=== PATIENT | female | born 1955 | race Caucasian/White ===

== ENCOUNTER 2021-03-30 18:31 | Inpatient (IN) ==
[2021-03-30] MEDS ORDERED: ETOMIDATE 20 MG/10 ML VIAL IV ONE (18:51)
[2021-03-30] MEDS ORDERED: VECURONIUM 10 MG VIAL IV ONE (18:51)
[2021-03-30] MEDS ORDERED: PIPERACILLIN/TAZOBACTAM 3,375 MG in SODIUM CHLORIDE 0.9% 100 ML IV STA (19:00)
[2021-03-30] MEDS ORDERED: ONDANSETRON 4 MG/2 ML VIAL IV STA (19:00)
[2021-03-30] MEDS ORDERED: methylPREDNISolone SOD SUC 125 MG/2 ML VIAL IV STA (19:00)
[2021-03-30] MEDS ORDERED: FUROSEMIDE 100 MG/10 ML VIAL IV STA (19:00)
[2021-03-30] MEDS ORDERED: METOPROLOL TARTRATE 5 MG/5 ML VIAL IV STA (20:00)
[2021-03-30] MEDS ORDERED: METOPROLOL TARTRATE 5 MG/5 ML VIAL IV ONE (20:07)
[2021-03-30 20:11] LABS: ABG Base Excess -7.5 MMOL/L (-2.5-2.5); ABG HCO3 17.9 MMOL/L (20-26); ABG Oxygen Saturation 99.6 % (95-100); ABG PCO2 36.6 MM HG (35-48); ABG PH 7.308 (7.35-7.45); ABG PO2 470.8 MM HG (80-95); ABG TCO2 19.1 MMOL/L (23-27)
[2021-03-30 20:45] LABS: Basophils # 0.1 10*3/uL (0.0-0.2); Basophils % 0.2 % (0.0-0.8); Hematocrit 41.7 VOL% (35.7-47.0); Hemoglobin 13.2 GM/DL (12.0-16.0); Immature Granulocytes % 4.2 %; Immature Granulocytes Absolute 1.27 #; Lymphocytes # 1.4 10*3/uL (1.4-4.0); Lymphocytes % 4.7 % (21.3-54.2); Mean Corpuscular HGB Conc 31.7 GM/DL (32-36); Mean Corpuscular Volume 91.9 FL (87-102); Mean Platelet Volume 11.5 FL (9.6-12.0); Monocytes % 2.3 % (1.7-12.7); NRBC # 0.05 10*3/uL; Neutrophils % 88.6 % (38.7-73.9); Platelet Count 400 T/CUMM (130-400); Red Blood Count 4.54 MC/CUMM (3.8-5.5); Red Cell Distribution Width 14.6 % (9.3-17.3); White Blood Count 30.4 T/CUMM (4-12)
[2021-03-30 20:54] LABS: Bacteria,Urine Moderate /HPF (Few); Bilirubin,Urine Negative (Negative); Blood, Urine Large mg/dL (Negative); Glucose,Urine (UA) 50 mg/dL (Negative); Ketones,Urine Negative (Negative); Mucus,Urine Moderate /LPF (Occasional); Nitrite,Urine Positive (Negative); Protein,Urine 100 MG/DL; RBC,Urine 2 /HPF (0-4); Squamous Epithelial Cell,Urine Occasional /HPF (0-10); Urine Appearance CLOUDY (Clear); Urine Color Yellow (Yellow); Urine Specific Gravity 1.024 (1.001-1.035)
[2021-03-30 20:59] LABS: Barbiturates Screen,Urine Negative (Negative); Benzodiazepines Screen,Urine Negative (Negative); Cannabinoid Screen,Urine Positive (Negative); Opiate Screen,Urine Positive (Negative); Phencyclidine Screen,Urine Negative (Negative)
[2021-03-30] MEDS ORDERED: AMIODARONE INJ 450 MG in DEXTROSE 5% 241 ML IV SCH (21:00)
[2021-03-30] MEDS ORDERED: cefTRIAXone 1,000 MG in SODIUM CHLORIDE 0.9% 100 ML IV STA (21:07)
[2021-03-30 21:10] LABS: INR 1.2; PT Patient Result 13.2 SECS (10.5-12.0)
[2021-03-30 21:32] LABS: Albumin 2.9 G/DL (3.4-5.0); Bilirubin,Total 0.6 MG/DL (0.20-1.00); CKMB % 1.7 %; Calcium 8.3 MG/DL (8.5-10.1); Osmolality,Calculated 293.3 MOS/KG (273-304); Potassium 4.2 MMOL/L (3.5-5.1); Total Protein 6.9 G/DL (6.4-8.2)
[2021-03-30 21:36] LABS: Lymphocytes 3 % (20-55); Platelet Estimate Increased; Segmented Neutrophils 94 % (50-85); Total Cells Counted 100
[2021-03-30] MEDS ORDERED: LACTATED RINGERS 1,000 ML IV ONE (22:30)
[2021-03-30] MEDS ORDERED: HEPARIN 1,000 UNIT/1 ML VIAL IV STA (23:35)
[2021-03-30] MEDS ORDERED: HEPARIN 5,000 UNIT/1 ML VIAL IV STA (23:36)
[2021-03-31] MEDS ORDERED: ALBUTEROL 2.5 MG/3 ML NEB RESP TX PRN
[2021-03-31] MEDS: SODIUM BICARB INJ 100 MEQ in DEXTROSE 5% 1,000 ML IV SCH ×2 (00:47→12:58)
[2021-03-31] MEDS ORDERED: VANCOMYCIN INJ 1,000 MG in SODIUM CHLORIDE 0.9% 250 ML IV SCH (02:00)
[2021-03-31] MEDS: LEVOFLOXACIN INJ 500 MG/100 ML PREMIX IV SCH (03:05)
[2021-03-31] MEDS: FAMOTIDINE 20 MG/2 ML VIAL IV SCH ×2 (03:24→13:39)
[2021-03-31 03:32] LABS: ABG Base Excess 1.8 MMOL/L (-2.5-2.5); ABG Oxygen Saturation 99.2 % (95-100); ABG TCO2 21.1 MMOL/L (23-27)
[2021-03-31 03:47] LABS: Basophils # 0.1 10*3/uL (0.0-0.2); Basophils % 0.2 % (0.0-0.8); Immature Granulocytes % 2.4 %; Immature Granulocytes Absolute 0.69 #; Lymphocytes # 1.6 10*3/uL (1.4-4.0); Lymphocytes % 5.5 % (21.3-54.2); Mean Corpuscular HGB Conc 31.7 GM/DL (32-36); Mean Corpuscular Volume 91.1 FL (87-102); Mean Platelet Volume 11.5 FL (9.6-12.0); Monocytes % 1.8 % (1.7-12.7); NRBC # 0.02 10*3/uL; Neutrophils % 90.1 % (38.7-73.9); Platelet Count 338 T/CUMM (130-400); Red Cell Distribution Width 14.7 % (9.3-17.3); White Blood Count 29.3 T/CUMM (4-12)
[2021-03-31 04:05] LABS: Lymphocytes 6 % (20-55); Platelet Estimate Adequate; Segmented Neutrophils 94 % (50-85); Total Cells Counted 100
[2021-03-31 04:43] LABS: Albumin 2.6 G/DL (3.4-5.0); Bilirubin,Total 0.4 MG/DL (0.20-1.00); Calcium 8.3 MG/DL (8.5-10.1); Osmolality,Calculated 288.7 MOS/KG (273-304); Potassium 3.6 MMOL/L (3.5-5.1); Total Protein 7.5 G/DL (6.4-8.2)
[2021-03-31 04:46] LABS: CKMB % 1.6 %
[2021-03-31 05:06] LABS: High Sensitive Troponin I* 462.3 ng/L (0-54)
[2021-03-31] MEDS ORDERED: HEPARIN 5,000 UNIT/1 ML VIAL IV ONE (08:24)
[2021-03-31] MEDS ORDERED: HEPARIN DRIP 25,000 UNITS/500 ML PREMIX IV SCH (08:30)
[2021-03-31] MEDS ORDERED: SODIUM BICARBONATE 50 MEQ/50 ML VIAL IV ONE (09:10)
[2021-03-31] MEDS ORDERED: ALBUMIN 5% 0 GM/0 ML VIAL IV ONE (09:10)
[2021-03-31] MEDS ORDERED: THROMBIN TOPICAL (RECOMBINANT) 5,000 UNIT VIAL TOP ONE (09:13)
[2021-03-31] MEDS ORDERED: VECURONIUM 10 MG VIAL IV ONE (09:14)
[2021-03-31] MEDS ORDERED: MIDAZOLAM 2 MG/2 ML VIAL ONE ×2 (09:14→11:50)
[2021-03-31] MEDS ORDERED: TISSUE ADHESIVE 1 EACH APPLICATOR TOP ONE ×2 (09:14→12:26)
[2021-03-31] MEDS ORDERED: VANCOMYCIN 500 MG VIAL ONE (09:14)
[2021-03-31] MEDS ORDERED: VANCOMYCIN INJ 1,000 MG in SODIUM CHLORIDE 0.9% 250 ML IV ONE (09:30)
[2021-03-31] MEDS ORDERED: SODIUM CHLORIDE 0.9% 1,000 ML IV PRN (09:55)
[2021-03-31] MEDS ORDERED: PHENYLEPHRINE DRIP 20 MG/250 ML PREMIX IV ONE (10:04)
[2021-03-31] MEDS ORDERED: HEPARIN/NACL 0.9% 2 UNITS/ML 1,000 UNIT/500 ML BAG IV ONE (10:37)
[2021-03-31] MEDS ORDERED: SEVOFLURANE 1 UNIT/15 MINUTE INH ONE ×3 (11:19→12:04)
[2021-03-31] MEDS ORDERED: HEPARIN 10,000 UNIT/10 ML VIAL ONE (11:19)
[2021-03-31] MEDS ORDERED: EPINEPHrine 1 MG/ML VIAL ONE (11:20)
[2021-03-31] MEDS ORDERED: SODIUM CHLORIDE 0.9% 250 ML IV ONE (11:20)
[2021-03-31] MEDS ORDERED: SODIUM CHLORIDE 0.9% 1,000 ML IV ONE ×2 (11:20)
[2021-03-31] MEDS ORDERED: PHENYLEPHRINE 1 MG/10 ML SYRINGE IV ONE ×2 (11:20→12:03)
[2021-03-31] MEDS ORDERED: ROCURONIUM 50 MG/5 ML VIAL IV ONE (11:50)
[2021-03-31 11:54] LABS: ABG Base Excess 1.9 MMOL/L (-2.5-2.5); ABG HCO3 26.2 MMOL/L (20-26); ABG Oxygen Saturation 99.2 % (95-100); ABG PCO2 46.1 MM HG (35-48); ABG PH 7.384 (7.35-7.45); ABG TCO2 24.6 MMOL/L (23-27); Glucose Heart Surgery 201 MG/DL (74-106); Hematocrit Heart Surgery 35.5 PERCENT (37-47); Hemoglobin Heart Surgery 11.5 G/DL (12.0-16.0); Potassium Heart/CVR 3.4 MMOL/L (3.5-5.1)
[2021-03-31] MEDS ORDERED: SODIUM CHLORIDE 0.9% 1,000 ML IV SCH (12:30)
[2021-03-31 12:40] LABS: Hematocrit 37.1 VOL% (35.7-47.0); Hemoglobin 12.1 GM/DL (12.0-16.0)
[2021-03-31] MEDS: NOREPINEPHRINE 8 MG in SODIUM CHLORIDE 0.9% 242 ML IV PRN (13:21)
[2021-03-31] MEDS ORDERED: LACTATED RINGERS 500 ML IV ONE (13:26)
[2021-03-31] MEDS ORDERED: LACTATED RINGERS 1,000 ML IV SCH (13:30)
[2021-03-31] MEDS: LACTATED RINGERS 1,000 ML IV SCH ×2 (14:30→21:24)
[2021-03-31 17:12] LABS: ABG Base Excess 2.2 MMOL/L (-2.5-2.5); ABG HCO3 26.4 MMOL/L (20-26); ABG Oxygen Saturation 99.6 % (95-100); ABG PCO2 34.2 MM HG (35-48); ABG PH 7.477 (7.35-7.45); ABG TCO2 22.1 MMOL/L (23-27)
[2021-03-31 18:05] LABS: ABG Base Excess 1.3 MMOL/L (-2.5-2.5); ABG HCO3 25.6 MMOL/L (20-26); ABG Oxygen Saturation 99.5 % (95-100); ABG PCO2 33.9 MM HG (35-48); ABG PH 7.467 (7.35-7.45); ABG TCO2 21.5 MMOL/L (23-27)
[2021-03-31] MEDS: INSULIN LISPRO 100 UNIT/ML SUBCUT SCH (18:27)
[2021-03-31] MEDS: ALBUTEROL/IPRATROPIUM 3 ML NEB RESP TX SCH (19:00)
[2021-03-31] MEDS: SERTRALINE 100 MG TABLET PO SCH (21:24)
[2021-04-01] MEDS: INSULIN LISPRO 100 UNIT/ML SUBCUT SCH ×4 (00:05→18:30)
[2021-04-01] MEDS ORDERED: LACTATED RINGERS 1,000 ML IV ONE (00:20)
[2021-04-01] MEDS: LEVOFLOXACIN INJ 500 MG/100 ML PREMIX IV SCH (01:00)
[2021-04-01] MEDS: NOREPINEPHRINE 8 MG in SODIUM CHLORIDE 0.9% 242 ML IV PRN ×2 (01:00→11:10)
[2021-04-01] MEDS: ALBUTEROL/IPRATROPIUM 3 ML NEB RESP TX SCH ×4 (01:00→19:45)
[2021-04-01] MEDS: FAMOTIDINE 20 MG/2 ML VIAL IV SCH (01:30)
[2021-04-01 02:32] LABS: Basophils % 0.2 % (0.0-0.8); Eosinophils % 0.2 % (0.00-10.9); Hematocrit 35.3 VOL% (35.7-47.0); Hemoglobin 11.1 GM/DL (12.0-16.0); Immature Granulocytes % 1.9 %; Immature Granulocytes Absolute 0.42 #; Lymphocytes # 2.3 10*3/uL (1.4-4.0); Lymphocytes % 10.4 % (21.3-54.2); Mean Corpuscular HGB Conc 31.4 GM/DL (32-36); Mean Corpuscular Volume 92.9 FL (87-102); Mean Platelet Volume 11.8 FL (9.6-12.0); Monocytes % 4.2 % (1.7-12.7); NRBC # 0.12 10*3/uL; Neutrophils % 83.1 % (38.7-73.9); Platelet Count 315 T/CUMM (130-400); Red Cell Distribution Width 14.9 % (9.3-17.3); White Blood Count 22.3 T/CUMM (4-12)
[2021-04-01 02:45] LABS: Calcium 6.7 MG/DL (8.5-10.1); Osmolality,Calculated 289.4 MOS/KG (273-304); Potassium 3.8 MMOL/L (3.5-5.1)
[2021-04-01 03:00] LABS: Band Neutrophils 9 % (0-10); Hypochromasia 1+; Lymphocytes 13 % (20-55); Platelet Estimate Normal; Segmented Neutrophils 76 % (50-85); Total Cells Counted 100
[2021-04-01 03:01] LABS: Polychromasia Few; Reactive Lymphocytes 1+
[2021-04-01 03:15] LABS: ABG Base Excess -0.7 MMOL/L (-2.5-2.5); ABG HCO3 23.9 MMOL/L (20-26); ABG Oxygen Saturation 98.8 % (95-100); ABG PCO2 34.3 MM HG (35-48); ABG PH 7.434 (7.35-7.45); ABG TCO2 20.4 MMOL/L (23-27)
[2021-04-01] MEDS ORDERED: LACTATED RINGERS 1,000 ML IV SCH (03:30)
[2021-04-01] MEDS: LEVOTHYROXINE 100 MCG TABLET PO SCH (06:32)
[2021-04-01] MEDS: LACTATED RINGERS 1,000 ML IV SCH ×4 (07:17→23:30)
[2021-04-01] MEDS: levETIRAcetam LIQUID 100 MG/ML 30 ML/BOTTLE PO SCH ×2 (08:33→20:00)
[2021-04-01] MEDS: SERTRALINE 100 MG TABLET PO SCH ×2 (08:33→20:01)
[2021-04-01] MEDS ORDERED: ATORVASTATIN 20 MG TABLET PO SCH (09:00)
[2021-04-01] MEDS ORDERED: LEVOFLOXACIN INJ 250 MG/50 ML PREMIX IV SCH (11:30)
[2021-04-02] MEDS: INSULIN LISPRO 100 UNIT/ML SUBCUT SCH ×4 (00:38→18:01)
[2021-04-02] MEDS: FAMOTIDINE 20 MG/2 ML VIAL IV SCH (02:10)
[2021-04-02] MEDS: ALBUTEROL/IPRATROPIUM 3 ML NEB RESP TX SCH ×4 (02:30→18:31)
[2021-04-02 02:59] LABS: ABG HCO3 22.8 MMOL/L (20-26); ABG Oxygen Saturation 99.6 % (95-100); ABG PCO2 31.6 MM HG (35-48); ABG PH 7.441 (7.35-7.45); ABG TCO2 19.7 MMOL/L (23-27)
[2021-04-02 03:54] LABS: Basophils % 0.1 % (0.0-0.8); Lymphocytes # 1.6 10*3/uL (1.4-4.0); Lymphocytes % 5.7 % (21.3-54.2)
[2021-04-02 04:03] LABS: Hematocrit 26.8 VOL% (35.7-47.0); Immature Granulocytes % 1.4 %; Immature Granulocytes Absolute 0.39 #; Mean Corpuscular HGB Conc 32.1 GM/DL (32-36); Mean Corpuscular Volume 92.4 FL (87-102); Mean Platelet Volume 12.5 FL (9.6-12.0); Monocytes % 2.5 % (1.7-12.7); NRBC # 0.07 10*3/uL; Neutrophils % 90.3 % (38.7-73.9); Platelet Count 276 T/CUMM (130-400); Red Cell Distribution Width 15.2 % (9.3-17.3); White Blood Count 27.9 T/CUMM (4-12)
[2021-04-02 04:07] LABS: Hemoglobin 8.6 GM/DL (12.0-16.0)
[2021-04-02 04:19] LABS: Calcium 6.8 MG/DL (8.5-10.1); Osmolality,Calculated 297.1 MOS/KG (273-304); Potassium 4.4 MMOL/L (3.5-5.1)
[2021-04-02 04:36] LABS: Band Neutrophils 6 % (0-10); Hypochromasia Slight; Lymphocytes 5 % (20-55); Platelet Estimate Normal; Segmented Neutrophils 85 % (50-85); Total Cells Counted 100
[2021-04-02] MEDS: LACTATED RINGERS 1,000 ML IV SCH ×3 (06:45→19:25)
[2021-04-02] MEDS ORDERED: MAGNESIUM SULF RIDER 4 GM/100 ML PREMIX IV PRN (07:36)
[2021-04-02] MEDS: SERTRALINE 100 MG TABLET PO SCH ×2 (09:40→20:58)
[2021-04-02] MEDS: levETIRAcetam LIQUID 100 MG/ML 30 ML/BOTTLE PO SCH ×2 (09:40→20:58)
[2021-04-02] MEDS: LEVOTHYROXINE 100 MCG TABLET PO SCH (09:40)
[2021-04-02] MEDS: MAGNESIUM SULF RIDER 2 GM/50 ML PREMIX IV PRN (09:40)
[2021-04-02] MEDS: HEPARIN 5,000 UNIT/1 ML VIAL SUBCUT SCH ×2 (15:04→22:09)
[2021-04-02] MEDS ORDERED: ZINC OXIDE PASTE 113 GM TUBE TOP PRN (16:12)
[2021-04-02] MEDS: DESITIN 4OZ/NYSTATIN 15 GRAM MIXTURE PASTE TOP SCH (20:58)
[2021-04-03] MEDS: INSULIN LISPRO 100 UNIT/ML SUBCUT SCH ×4 (00:25→18:36)
[2021-04-03] MEDS: FAMOTIDINE 20 MG/2 ML VIAL IV SCH (01:15)
[2021-04-03] MEDS: ALBUTEROL/IPRATROPIUM 3 ML NEB RESP TX SCH ×4 (01:27→19:43)
[2021-04-03] MEDS: LACTATED RINGERS 1,000 ML IV SCH ×4 (02:06→20:59)
[2021-04-03 04:15] LABS: Calcium 7.2 MG/DL (8.5-10.1)
[2021-04-03 04:17] LABS: Basophils % 0.1 % (0.0-0.8); Hematocrit 21.6 VOL% (35.7-47.0); Immature Granulocytes Absolute 0.19 #; Lymphocytes # 1.3 10*3/uL (1.4-4.0); Lymphocytes % 6.8 % (21.3-54.2); Mean Corpuscular HGB Conc 31.5 GM/DL (32-36); Mean Corpuscular Volume 93.1 FL (87-102); Mean Platelet Volume 11.9 FL (9.6-12.0); Monocytes % 1.3 % (1.7-12.7); NRBC # 0.06 10*3/uL; Neutrophils % 90.8 % (38.7-73.9); Red Blood Count 2.32 MC/CUMM (3.8-5.5); Red Cell Distribution Width 15.4 % (9.3-17.3)
[2021-04-03 04:21] LABS: Hemoglobin 6.8 GM/DL (12.0-16.0); Platelet Count 217 T/CUMM (130-400); White Blood Count 18.7 T/CUMM (4-12)
[2021-04-03 04:28] LABS: Band Neutrophils 9 % (0-10); Eosinophils 1 % (0-10); Lymphocytes 6 % (20-55); Segmented Neutrophils 81 % (50-85); Total Cells Counted 100
[2021-04-03 04:29] LABS: Hypochromasia 1+; Microcytosis 1+; Platelet Estimate Normal
[2021-04-03 04:56] LABS: Albumin 1.1 G/DL (3.4-5.0); Bilirubin,Direct 0.23 MG/DL (0.0-0.20); Bilirubin,Indirect 0.3 MG/DL (0.0-1.0); Bilirubin,Total 0.5 MG/DL (0.20-1.00); Total Protein 3.8 G/DL (6.4-8.2)
[2021-04-03 05:29] LABS: Albumin 1.2 G/DL (3.4-5.0); Bilirubin,Total 0.5 MG/DL (0.20-1.00); Calcium 7.5 MG/DL (8.5-10.1); Osmolality,Calculated 298.1 MOS/KG (273-304); Potassium 3.9 MMOL/L (3.5-5.1); Total Protein 4.6 G/DL (6.4-8.2)
[2021-04-03 05:33] LABS: INR 1.2; Partial Thromboplastin Time 36.2 SECS (23.9-33.8)
[2021-04-03] MEDS: LEVOTHYROXINE 100 MCG TABLET PO SCH (06:14)
[2021-04-03] MEDS: HEPARIN 5,000 UNIT/1 ML VIAL SUBCUT SCH ×3 (06:14→22:43)
[2021-04-03 08:04] LABS: CKMB % 0.4 %
[2021-04-03] MEDS: DESITIN 4OZ/NYSTATIN 15 GRAM MIXTURE PASTE TOP SCH ×2 (09:39→20:20)
[2021-04-03] MEDS: SERTRALINE 100 MG TABLET PO SCH ×2 (09:39→20:20)
[2021-04-03] MEDS: levETIRAcetam LIQUID 100 MG/ML 30 ML/BOTTLE PO SCH ×2 (09:40→20:20)
[2021-04-03] MEDS: cefTRIAXone 1,000 MG in SODIUM CHLORIDE 0.9% 100 ML IV SCH (09:41)
[2021-04-03] MEDS ORDERED: FUROSEMIDE 20 MG/2 ML VIAL IV ONE (12:18)
[2021-04-03] MEDS: NOREPINEPHRINE 8 MG in SODIUM CHLORIDE 0.9% 242 ML IV PRN (17:16)
[2021-04-03 17:20] LABS: Hematocrit 29.8 VOL% (35.7-47.0)
[2021-04-03 17:21] LABS: Hemoglobin 9.5 GM/DL (12.0-16.0)
[2021-04-04] MEDS: INSULIN LISPRO 100 UNIT/ML SUBCUT SCH ×4 (00:21→18:12)
[2021-04-04] MEDS: ALBUTEROL/IPRATROPIUM 3 ML NEB RESP TX SCH ×4 (01:25→19:42)
[2021-04-04] MEDS: FAMOTIDINE 20 MG/2 ML VIAL IV SCH (01:35)
[2021-04-04 04:42] LABS: Basophils % 0.2 % (0.0-0.8); Hematocrit 29.2 VOL% (35.7-47.0); Hemoglobin 9.2 GM/DL (12.0-16.0); Immature Granulocytes % 0.6 %; Lymphocytes # 1.1 10*3/uL (1.4-4.0); Lymphocytes % 6.3 % (21.3-54.2); Mean Corpuscular HGB Conc 31.5 GM/DL (32-36); Mean Platelet Volume 11.9 FL (9.6-12.0); Monocytes % 2.8 % (1.7-12.7); NRBC # 0.08 10*3/uL; Neutrophils % 90.1 % (38.7-73.9); Platelet Count 233 T/CUMM (130-400); Red Blood Count 3.21 MC/CUMM (3.8-5.5); Red Cell Distribution Width 16.1 % (9.3-17.3); White Blood Count 17.6 T/CUMM (4-12)
[2021-04-04 05:02] LABS: Band Neutrophils 4 % (0-10); Eosinophils 3 % (0-10); Hypochromasia 1+; Lymphocytes 6 % (20-55); Nucleated Red Blood Cells 2 (0-5); Segmented Neutrophils 85 % (50-85); Total Cells Counted 100
[2021-04-04 05:03] LABS: Microcytosis 1+; Ovalocytes Slight; Platelet Estimate Normal
[2021-04-04 05:06] LABS: Albumin 1.2 G/DL (3.4-5.0); Bilirubin,Total 1.5 MG/DL (0.20-1.00); Calcium 7.5 MG/DL (8.5-10.1); Osmolality,Calculated 299.8 MOS/KG (273-304); Potassium 3.8 MMOL/L (3.5-5.1)
[2021-04-04] MEDS: LEVOTHYROXINE 100 MCG TABLET PO SCH (06:16)
[2021-04-04] MEDS: HEPARIN 5,000 UNIT/1 ML VIAL SUBCUT SCH ×3 (06:16→21:19)
[2021-04-04] MEDS: LACTATED RINGERS 1,000 ML IV SCH ×3 (08:30→11:51)
[2021-04-04] MEDS: levETIRAcetam LIQUID 100 MG/ML 30 ML/BOTTLE PO SCH ×2 (09:07→22:56)
[2021-04-04] MEDS: SERTRALINE 100 MG TABLET PO SCH ×2 (09:08→21:19)
[2021-04-04] MEDS: cefTRIAXone 1,000 MG in SODIUM CHLORIDE 0.9% 100 ML IV SCH (09:08)
[2021-04-04] MEDS: DESITIN 4OZ/NYSTATIN 15 GRAM MIXTURE PASTE TOP SCH ×2 (09:09→22:57)
[2021-04-04] MEDS: CLOPIDOGREL 75 MG TABLET PO SCH (09:54)
[2021-04-04] MEDS: ASPIRIN EC 81 MG TABLET PO SCH (09:54)
[2021-04-04] MEDS ORDERED: FUROSEMIDE 40 MG/4 ML VIAL IV ONE (12:21)
[2021-04-05] MEDS: FAMOTIDINE 20 MG/2 ML VIAL IV SCH (00:30)
[2021-04-05] MEDS: LACTATED RINGERS 1,000 ML IV SCH ×2 (00:30→11:47)
[2021-04-05] MEDS: INSULIN LISPRO 100 UNIT/ML SUBCUT SCH ×4 (00:30→20:10)
[2021-04-05] MEDS: DESITIN 4OZ/NYSTATIN 15 GRAM MIXTURE PASTE TOP SCH ×3 (00:45→22:05)
[2021-04-05] MEDS: ALBUTEROL/IPRATROPIUM 3 ML NEB RESP TX SCH ×4 (01:45→19:20)
[2021-04-05 04:34] LABS: Basophils % 0.3 % (0.0-0.8); Eosinophils # 0.1 10*3/uL (0.0-0.87); Eosinophils % 0.4 % (0.00-10.9); Hematocrit 31.9 VOL% (35.7-47.0); Hemoglobin 10.1 GM/DL (12.0-16.0); Immature Granulocytes Absolute 0.15 #; Lymphocytes # 1.2 10*3/uL (1.4-4.0); Lymphocytes % 7.4 % (21.3-54.2); Mean Corpuscular HGB Conc 31.7 GM/DL (32-36); Mean Corpuscular Volume 91.7 FL (87-102); Mean Platelet Volume 11.8 FL (9.6-12.0); Monocytes % 4.4 % (1.7-12.7); NRBC # 0.05 10*3/uL; Neutrophils % 86.5 % (38.7-73.9); Platelet Count 245 T/CUMM (130-400); Red Blood Count 3.48 MC/CUMM (3.8-5.5); Red Cell Distribution Width 16.1 % (9.3-17.3); White Blood Count 15.8 T/CUMM (4-12)
[2021-04-05 04:55] LABS: Hypochromasia 1+; Lymphocytes 5 % (20-55); Microcytosis 1+; Platelet Estimate Adequate; Segmented Neutrophils 89 % (50-85); Total Cells Counted 100
[2021-04-05 04:59] LABS: Albumin 1.4 G/DL (3.4-5.0); Bilirubin,Total 0.7 MG/DL (0.20-1.00); Calcium 7.5 MG/DL (8.5-10.1); Osmolality,Calculated 291.4 MOS/KG (273-304); Potassium 3.6 MMOL/L (3.5-5.1); Total Protein 5.5 G/DL (6.4-8.2)
[2021-04-05] MEDS: LEVOTHYROXINE 100 MCG TABLET PO SCH (05:55)
[2021-04-05] MEDS: HEPARIN 5,000 UNIT/1 ML VIAL SUBCUT SCH ×3 (05:56→22:06)
[2021-04-05] MEDS: cefTRIAXone 1,000 MG in SODIUM CHLORIDE 0.9% 100 ML IV SCH (11:10)
[2021-04-05] MEDS: SERTRALINE 100 MG TABLET PO SCH ×2 (11:12→22:05)
[2021-04-05] MEDS: ASPIRIN EC 81 MG TABLET PO SCH (11:12)
[2021-04-05] MEDS: CLOPIDOGREL 75 MG TABLET PO SCH (11:12)
[2021-04-05] MEDS: CLOTRIMAZOLE 10 MG TROCHE PO SCH ×4 (11:20→22:06)
[2021-04-05] MEDS: levETIRAcetam LIQUID 100 MG/ML 30 ML/BOTTLE PO SCH ×2 (11:47→23:05)
[2021-04-05] MEDS: ONDANSETRON 4 MG/2 ML VIAL IV PRN (12:32)
[2021-04-06] MEDS: FAMOTIDINE 20 MG/2 ML VIAL IV SCH (00:27)
[2021-04-06] MEDS: ALBUTEROL/IPRATROPIUM 3 ML NEB RESP TX SCH ×4 (01:13→20:20)
[2021-04-06] MEDS: INSULIN LISPRO 100 UNIT/ML SUBCUT SCH ×4 (01:52→19:11)
[2021-04-06 05:00] LABS: Basophils % 0.2 % (0.0-0.8); Hematocrit 33.8 VOL% (35.7-47.0); Hemoglobin 10.3 GM/DL (12.0-16.0); Immature Granulocytes % 1.7 %; Immature Granulocytes Absolute 0.22 #; Lymphocytes # 1.2 10*3/uL (1.4-4.0); Lymphocytes % 9.3 % (21.3-54.2); Mean Corpuscular HGB Conc 30.5 GM/DL (32-36); Mean Corpuscular Volume 94.4 FL (87-102); Mean Platelet Volume 11.4 FL (9.6-12.0); Monocytes % 7.3 % (1.7-12.7); NRBC # 0.02 10*3/uL; Neutrophils % 81.5 % (38.7-73.9); Platelet Count 276 T/CUMM (130-400); Red Blood Count 3.58 MC/CUMM (3.8-5.5); Red Cell Distribution Width 15.9 % (9.3-17.3); White Blood Count 12.6 T/CUMM (4-12)
[2021-04-06 05:25] LABS: Band Neutrophils 1 % (0-10); Eosinophils 1 % (0-10); Hypochromasia 1+; Lymphocytes 9 % (20-55); Microcytosis 1+; Platelet Estimate Adequate; Segmented Neutrophils 84 % (50-85); Total Cells Counted 100
[2021-04-06 05:42] LABS: Calcium 7.6 MG/DL (8.5-10.1); Osmolality,Calculated 298.7 MOS/KG (273-304); Potassium 3.9 MMOL/L (3.5-5.1)
[2021-04-06 05:45] LABS: Albumin 1.5 G/DL (3.4-5.0); Bilirubin,Total 1.3 MG/DL (0.20-1.00); Calcium 8.1 MG/DL (8.5-10.1); Osmolality,Calculated 294.1 MOS/KG (273-304); Potassium 3.9 MMOL/L (3.5-5.1); Total Protein 5.9 G/DL (6.4-8.2)
[2021-04-06] MEDS: LORazepam 2 MG/1 ML VIAL IV PRN (06:32)
[2021-04-06] MEDS: HEPARIN 5,000 UNIT/1 ML VIAL SUBCUT SCH ×3 (06:41→21:08)
[2021-04-06] MEDS: CLOTRIMAZOLE 10 MG TROCHE PO SCH ×5 (06:41→21:08)
[2021-04-06] MEDS: LEVOTHYROXINE 100 MCG TABLET PO SCH (06:41)
[2021-04-06] MEDS: SERTRALINE 100 MG TABLET PO SCH ×2 (09:59→20:45)
[2021-04-06] MEDS: ASPIRIN EC 81 MG TABLET PO SCH (09:59)
[2021-04-06] MEDS: CLOPIDOGREL 75 MG TABLET PO SCH (09:59)
[2021-04-06] MEDS: DESITIN 4OZ/NYSTATIN 15 GRAM MIXTURE PASTE TOP SCH ×2 (10:01→20:45)
[2021-04-06] MEDS: MAGNESIUM SULF RIDER 2 GM/50 ML PREMIX IV PRN (10:02)
[2021-04-06 11:03] LABS: ABG Base Excess 2.4 MMOL/L (-2.5-2.5); ABG HCO3 26.1 MMOL/L (20-26); ABG Oxygen Saturation 73.2 % (95-100); ABG PH 7.466 (7.35-7.45); ABG TCO2 23.6 MMOL/L (23-27)
[2021-04-06 11:04] LABS: ABG PO2 40.5 MM HG (80-95)
[2021-04-06 13:53] LABS: ABG Base Excess 0.7 MMOL/L (-2.5-2.5); ABG PH 7.402 (7.35-7.45); ABG TCO2 22.8 MMOL/L (23-27)
[2021-04-06] MEDS: levETIRAcetam LIQUID 100 MG/ML 30 ML/BOTTLE PO SCH ×3 (15:22→20:50)
[2021-04-07] MEDS: INSULIN LISPRO 100 UNIT/ML SUBCUT SCH ×4 (01:17→18:55)
[2021-04-07] MEDS: FAMOTIDINE 20 MG/2 ML VIAL IV SCH (02:01)
[2021-04-07] MEDS: LACTATED RINGERS 1,000 ML IV SCH ×3 (02:16→19:25)
[2021-04-07] MEDS: LORazepam 2 MG/1 ML VIAL IV PRN (03:10)
[2021-04-07] MEDS: ALBUTEROL/IPRATROPIUM 3 ML NEB RESP TX SCH ×4 (04:10→19:21)
[2021-04-07] MEDS: CLOTRIMAZOLE 10 MG TROCHE PO SCH ×5 (06:24→21:56)
[2021-04-07] MEDS: LEVOTHYROXINE 100 MCG TABLET PO SCH (06:24)
[2021-04-07] MEDS: HEPARIN 5,000 UNIT/1 ML VIAL SUBCUT SCH ×3 (06:24→21:55)
[2021-04-07 08:15] LABS: Basophils % 0.4 % (0.0-0.8); Eosinophils # 0.1 10*3/uL (0.0-0.87); Eosinophils % 0.5 % (0.00-10.9); Hematocrit 34.8 VOL% (35.7-47.0); Immature Granulocytes % 2.4 %; Immature Granulocytes Absolute 0.25 #; Lymphocytes # 1.3 10*3/uL (1.4-4.0); Lymphocytes % 11.8 % (21.3-54.2); Mean Corpuscular HGB Conc 31.6 GM/DL (32-36); Mean Corpuscular Volume 92.8 FL (87-102); Mean Platelet Volume 11.2 FL (9.6-12.0); Monocytes % 8.8 % (1.7-12.7); Neutrophils % 76.1 % (38.7-73.9); Platelet Count 330 T/CUMM (130-400); Red Blood Count 3.75 MC/CUMM (3.8-5.5); Red Cell Distribution Width 15.8 % (9.3-17.3); White Blood Count 10.6 T/CUMM (4-12)
[2021-04-07 08:37] LABS: Band Neutrophils 1 % (0-10); Eosinophils 2 % (0-10); Hypochromasia 1+; Lymphocytes 16 % (20-55); Microcytosis 1+; Platelet Estimate Adequate; Segmented Neutrophils 77 % (50-85); Total Cells Counted 100
[2021-04-07 08:46] LABS: Calcium 8.1 MG/DL (8.5-10.1); Osmolality,Calculated 294.1 MOS/KG (273-304); Potassium 3.7 MMOL/L (3.5-5.1)
[2021-04-07] MEDS: ASPIRIN EC 81 MG TABLET PO SCH (09:48)
[2021-04-07] MEDS: CLOPIDOGREL 75 MG TABLET PO SCH (09:48)
[2021-04-07] MEDS: SERTRALINE 100 MG TABLET PO SCH ×2 (09:49→21:56)
[2021-04-07] MEDS: DESITIN 4OZ/NYSTATIN 15 GRAM MIXTURE PASTE TOP SCH ×2 (09:55→21:54)
[2021-04-07] MEDS: levETIRAcetam LIQUID 100 MG/ML 30 ML/BOTTLE PO SCH ×2 (09:55→21:55)
[2021-04-08] MEDS: FAMOTIDINE 20 MG/2 ML VIAL IV SCH (00:18)
[2021-04-08] MEDS: INSULIN LISPRO 100 UNIT/ML SUBCUT SCH ×4 (00:20→18:00)
[2021-04-08] MEDS: ALBUTEROL/IPRATROPIUM 3 ML NEB RESP TX SCH ×4 (01:15→20:57)
[2021-04-08] MEDS: CLOTRIMAZOLE 10 MG TROCHE PO SCH ×5 (05:21→21:02)
[2021-04-08] MEDS: HEPARIN 5,000 UNIT/1 ML VIAL SUBCUT SCH ×3 (05:21→21:02)
[2021-04-08 05:41] LABS: Basophils % 0.4 % (0.0-0.8); Eosinophils % 0.4 % (0.00-10.9); Hematocrit 32.2 VOL% (35.7-47.0); Hemoglobin 9.9 GM/DL (12.0-16.0); Immature Granulocytes % 1.9 %; Immature Granulocytes Absolute 0.19 #; Lymphocytes # 1.5 10*3/uL (1.4-4.0); Lymphocytes % 14.8 % (21.3-54.2); Mean Corpuscular HGB Conc 30.7 GM/DL (32-36); Mean Platelet Volume 11.2 FL (9.6-12.0); Monocytes % 7.1 % (1.7-12.7); Neutrophils % 75.4 % (38.7-73.9); Platelet Count 326 T/CUMM (130-400); Red Cell Distribution Width 15.6 % (9.3-17.3); White Blood Count 10.2 T/CUMM (4-12)
[2021-04-08] MEDS: LEVOTHYROXINE 100 MCG TABLET PO SCH (05:56)
[2021-04-08 06:19] LABS: Band Neutrophils 3 % (0-10); Eosinophils 2 % (0-10); Lymphocytes 8 % (20-55); Platelet Estimate Normal; Segmented Neutrophils 80 % (50-85); Total Cells Counted 100
[2021-04-08 06:32] LABS: Calcium 7.8 MG/DL (8.5-10.1); Osmolality,Calculated 296.8 MOS/KG (273-304)
[2021-04-08] MEDS ORDERED: MORPHINE 2 MG/1 ML SYRINGE IV SCH (09:00)
[2021-04-08] MEDS: DESITIN 4OZ/NYSTATIN 15 GRAM MIXTURE PASTE TOP SCH ×2 (09:14→20:10)
[2021-04-08] MEDS: SERTRALINE 100 MG TABLET PO SCH ×2 (09:14→20:09)
[2021-04-08] MEDS: ASPIRIN EC 81 MG TABLET PO SCH (09:14)
[2021-04-08] MEDS: CLOPIDOGREL 75 MG TABLET PO SCH (09:14)
[2021-04-08] MEDS: POTASSIUM CHLORIDE 20 MEQ TABLET PO PRN (09:33)
[2021-04-08] MEDS: levETIRAcetam LIQUID 100 MG/ML 30 ML/BOTTLE PO SCH ×2 (09:33→20:08)
[2021-04-08] MEDS ORDERED: POTASSIUM CHLORIDE RIDER 10 MEQ/100 ML PREMIX IV PRN (13:43)
[2021-04-08] MEDS: POTASSIUM CHLORIDE RIDER 20 MEQ/100 ML PREMIX IV PRN ×2 (14:02→17:10)
[2021-04-08] MEDS: COLESEVELAM 625 MG TABLET PO SCH (17:10)
[2021-04-08] MEDS: LACTATED RINGERS 1,000 ML IV SCH (17:15)
[2021-04-09] MEDS: ALBUTEROL/IPRATROPIUM 3 ML NEB RESP TX SCH ×4 (00:49→19:37)
[2021-04-09] MEDS: INSULIN LISPRO 100 UNIT/ML SUBCUT SCH ×4 (01:37→18:36)
[2021-04-09] MEDS: FAMOTIDINE 20 MG/2 ML VIAL IV SCH (01:38)
[2021-04-09] MEDS: MORPHINE 2 MG/1 ML SYRINGE IV PRN ×2 (01:51→08:12)
[2021-04-09 05:30] LABS: Basophils % 0.2 % (0.0-0.8); Hematocrit 30.6 VOL% (35.7-47.0); Hemoglobin 9.6 GM/DL (12.0-16.0); Immature Granulocytes % 1.7 %; Lymphocytes # 1.7 10*3/uL (1.4-4.0); Lymphocytes % 14.2 % (21.3-54.2); Mean Corpuscular HGB Conc 31.4 GM/DL (32-36); Mean Corpuscular Volume 91.6 FL (87-102); Mean Platelet Volume 10.8 FL (9.6-12.0); Monocytes % 5.7 % (1.7-12.7); Neutrophils % 78.2 % (38.7-73.9); Platelet Count 314 T/CUMM (130-400); Red Blood Count 3.34 MC/CUMM (3.8-5.5); Red Cell Distribution Width 15.6 % (9.3-17.3)
[2021-04-09 05:55] LABS: Band Neutrophils 22 % (0-10); Eosinophils 1 % (0-10); Lymphocytes 14 % (20-55); Platelet Estimate Normal; Segmented Neutrophils 56 % (50-85); Total Cells Counted 100
[2021-04-09 05:56] LABS: Anisocytosis 1+
[2021-04-09 05:58] LABS: Calcium 7.4 MG/DL (8.5-10.1); Osmolality,Calculated 294.7 MOS/KG (273-304); Potassium 3.5 MMOL/L (3.5-5.1)
[2021-04-09] MEDS: CLOTRIMAZOLE 10 MG TROCHE PO SCH ×5 (05:59→21:40)
[2021-04-09] MEDS: HEPARIN 5,000 UNIT/1 ML VIAL SUBCUT SCH ×3 (05:59→21:40)
[2021-04-09] MEDS: LEVOTHYROXINE 100 MCG TABLET PO SCH (05:59)
[2021-04-09] MEDS: LACTATED RINGERS 1,000 ML IV SCH (07:31)
[2021-04-09] MEDS: DESITIN 4OZ/NYSTATIN 15 GRAM MIXTURE PASTE TOP SCH ×2 (10:55→21:39)
[2021-04-09] MEDS: COLESEVELAM 625 MG TABLET PO SCH ×2 (11:01→17:19)
[2021-04-09] MEDS: CLOPIDOGREL 75 MG TABLET PO SCH (11:02)
[2021-04-09] MEDS: ASPIRIN EC 81 MG TABLET PO SCH (11:02)
[2021-04-09] MEDS: SERTRALINE 100 MG TABLET PO SCH ×2 (11:02→21:40)
[2021-04-09] MEDS: levETIRAcetam LIQUID 100 MG/ML 30 ML/BOTTLE PO SCH ×2 (11:05→21:38)
[2021-04-10] MEDS: MORPHINE 2 MG/1 ML SYRINGE IV PRN (00:22)
[2021-04-10] MEDS: FAMOTIDINE 20 MG/2 ML VIAL IV SCH (00:29)
[2021-04-10] MEDS: INSULIN LISPRO 100 UNIT/ML SUBCUT SCH ×4 (00:34→18:37)
[2021-04-10] MEDS: ALBUTEROL/IPRATROPIUM 3 ML NEB RESP TX SCH ×4 (00:46→19:04)
[2021-04-10 05:10] LABS: Basophils % 0.2 % (0.0-0.8); Hematocrit 30.7 VOL% (35.7-47.0); Hemoglobin 9.6 GM/DL (12.0-16.0); Immature Granulocytes Absolute 0.13 #; Lymphocytes # 1.6 10*3/uL (1.4-4.0); Lymphocytes % 12.3 % (21.3-54.2); Mean Corpuscular HGB Conc 31.3 GM/DL (32-36); Mean Corpuscular Volume 92.2 FL (87-102); Mean Platelet Volume 10.7 FL (9.6-12.0); Monocytes % 4.3 % (1.7-12.7); Neutrophils % 82.2 % (38.7-73.9); Platelet Count 314 T/CUMM (130-400); Red Blood Count 3.33 MC/CUMM (3.8-5.5); Red Cell Distribution Width 15.6 % (9.3-17.3); White Blood Count 12.8 T/CUMM (4-12)
[2021-04-10 05:31] LABS: Eosinophils 1 % (0-10); Lymphocytes 13 % (20-55); Segmented Neutrophils 79 % (50-85); Total Cells Counted 100
[2021-04-10 05:32] LABS: Hypochromasia 1+; Microcytosis 1+; Platelet Estimate Adequate
[2021-04-10] MEDS: HEPARIN 5,000 UNIT/1 ML VIAL SUBCUT SCH ×4 (05:44→21:21)
[2021-04-10 05:47] LABS: Calcium 7.3 MG/DL (8.5-10.1); Osmolality,Calculated 287.1 MOS/KG (273-304); Potassium 3.6 MMOL/L (3.5-5.1)
[2021-04-10] MEDS: LEVOTHYROXINE 100 MCG TABLET PO SCH (06:07)
[2021-04-10] MEDS: CLOTRIMAZOLE 10 MG TROCHE PO SCH ×5 (06:07→21:19)
[2021-04-10] MEDS: LACTATED RINGERS 1,000 ML IV SCH ×2 (09:41→11:12)
[2021-04-10] MEDS: COLESEVELAM 625 MG TABLET PO SCH ×2 (09:42→18:37)
[2021-04-10] MEDS: ASPIRIN EC 81 MG TABLET PO SCH (09:43)
[2021-04-10] MEDS: CLOPIDOGREL 75 MG TABLET PO SCH (09:43)
[2021-04-10] MEDS: DESITIN 4OZ/NYSTATIN 15 GRAM MIXTURE PASTE TOP SCH ×2 (09:43→21:18)
[2021-04-10] MEDS: SERTRALINE 100 MG TABLET PO SCH ×2 (09:43→21:19)
[2021-04-10] MEDS: LORazepam 2 MG/1 ML VIAL IV PRN (10:10)
[2021-04-10] MEDS: cefTRIAXone 1,000 MG in SODIUM CHLORIDE 0.9% 100 ML IV SCH (10:11)
[2021-04-10] MEDS: levETIRAcetam LIQUID 100 MG/ML 30 ML/BOTTLE PO SCH ×2 (10:12→21:17)
[2021-04-11] MEDS: ALBUTEROL/IPRATROPIUM 3 ML NEB RESP TX SCH ×3 (00:27→12:27)
[2021-04-11] MEDS: FAMOTIDINE 20 MG/2 ML VIAL IV SCH (01:03)
[2021-04-11] MEDS: INSULIN LISPRO 100 UNIT/ML SUBCUT SCH ×4 (01:04→18:09)
[2021-04-11] MEDS: LORazepam 2 MG/1 ML VIAL IV PRN ×2 (01:04→19:31)
[2021-04-11] MEDS: MORPHINE 2 MG/1 ML SYRINGE IV PRN (02:56)
[2021-04-11 05:31] LABS: Basophils # 0.1 10*3/uL (0.0-0.2); Basophils % 0.4 % (0.0-0.8); Eosinophils % 0.2 % (0.00-10.9); Hematocrit 29.3 VOL% (35.7-47.0); Hemoglobin 9.2 GM/DL (12.0-16.0); Immature Granulocytes % 1.1 %; Immature Granulocytes Absolute 0.13 #; Lymphocytes # 1.5 10*3/uL (1.4-4.0); Lymphocytes % 12.3 % (21.3-54.2); Mean Corpuscular HGB Conc 31.4 GM/DL (32-36); Mean Corpuscular Volume 92.7 FL (87-102); Monocytes % 4.1 % (1.7-12.7); Neutrophils % 81.9 % (38.7-73.9); Platelet Count 326 T/CUMM (130-400); Red Blood Count 3.16 MC/CUMM (3.8-5.5); Red Cell Distribution Width 15.6 % (9.3-17.3); White Blood Count 12.2 T/CUMM (4-12)
[2021-04-11 05:58] LABS: Calcium 7.5 MG/DL (8.5-10.1); Potassium 3.4 MMOL/L (3.5-5.1)
[2021-04-11] MEDS: HEPARIN 5,000 UNIT/1 ML VIAL SUBCUT SCH ×3 (06:10→22:24)
[2021-04-11] MEDS: LEVOTHYROXINE 100 MCG TABLET PO SCH (06:10)
[2021-04-11] MEDS: CLOTRIMAZOLE 10 MG TROCHE PO SCH ×5 (06:10→22:24)
[2021-04-11] MEDS: COLESEVELAM 625 MG TABLET PO SCH ×2 (09:59→17:02)
[2021-04-11] MEDS: SERTRALINE 100 MG TABLET PO SCH ×2 (10:00→22:24)
[2021-04-11] MEDS: CLOPIDOGREL 75 MG TABLET PO SCH (10:00)
[2021-04-11] MEDS: ASPIRIN EC 81 MG TABLET PO SCH (10:00)
[2021-04-11] MEDS: cefTRIAXone 1,000 MG in SODIUM CHLORIDE 0.9% 100 ML IV SCH (10:01)
[2021-04-11] MEDS: DESITIN 4OZ/NYSTATIN 15 GRAM MIXTURE PASTE TOP SCH ×2 (10:02→22:24)
[2021-04-11] MEDS: levETIRAcetam LIQUID 100 MG/ML 30 ML/BOTTLE PO SCH ×2 (10:04→22:23)
[2021-04-11] MEDS: POTASSIUM CHLORIDE 20 MEQ TABLET PO PRN (10:49)
[2021-04-11] MEDS: POTASSIUM CHLORIDE RIDER 20 MEQ/100 ML PREMIX IV PRN (15:30)
[2021-04-11] MEDS: LACTATED RINGERS 1,000 ML IV SCH (22:23)
[2021-04-12] MEDS: INSULIN LISPRO 100 UNIT/ML SUBCUT SCH ×4 (00:14→19:14)
[2021-04-12] MEDS: ALBUTEROL/IPRATROPIUM 3 ML NEB RESP TX SCH ×5 (00:19→19:15)
[2021-04-12] MEDS: FAMOTIDINE 20 MG/2 ML VIAL IV SCH (00:54)
[2021-04-12] MEDS: MORPHINE 2 MG/1 ML SYRINGE IV PRN ×2 (01:24→09:30)
[2021-04-12 05:45] LABS: Basophils # 0.1 10*3/uL (0.0-0.2); Basophils % 0.4 % (0.0-0.8); Eosinophils # 0.1 10*3/uL (0.0-0.87); Eosinophils % 0.4 % (0.00-10.9); Hematocrit 30.8 VOL% (35.7-47.0); Hemoglobin 9.5 GM/DL (12.0-16.0); Immature Granulocytes % 0.9 %; Immature Granulocytes Absolute 0.14 #; Lymphocytes # 1.6 10*3/uL (1.4-4.0); Lymphocytes % 10.3 % (21.3-54.2); Mean Corpuscular HGB Conc 30.8 GM/DL (32-36); Mean Corpuscular Volume 93.6 FL (87-102); Monocytes % 3.7 % (1.7-12.7); Neutrophils % 84.3 % (38.7-73.9); Platelet Count 351 T/CUMM (130-400); Red Blood Count 3.29 MC/CUMM (3.8-5.5); Red Cell Distribution Width 15.6 % (9.3-17.3); White Blood Count 15.8 T/CUMM (4-12)
[2021-04-12 06:12] LABS: Calcium 7.4 MG/DL (8.5-10.1); Osmolality,Calculated 287.8 MOS/KG (273-304); Potassium 3.5 MMOL/L (3.5-5.1)
[2021-04-12] MEDS: LEVOTHYROXINE 100 MCG TABLET PO SCH (06:19)
[2021-04-12] MEDS: CLOTRIMAZOLE 10 MG TROCHE PO SCH ×5 (06:19→21:04)
[2021-04-12] MEDS: HEPARIN 5,000 UNIT/1 ML VIAL SUBCUT SCH ×3 (06:20→21:04)
[2021-04-12] MEDS: CLOPIDOGREL 75 MG TABLET PO SCH (09:39)
[2021-04-12] MEDS: COLESEVELAM 625 MG TABLET PO SCH ×2 (09:39→19:13)
[2021-04-12] MEDS: ASPIRIN EC 81 MG TABLET PO SCH (09:40)
[2021-04-12] MEDS: POTASSIUM CHLORIDE 20 MEQ TABLET PO SCH (09:40)
[2021-04-12] MEDS: DESITIN 4OZ/NYSTATIN 15 GRAM MIXTURE PASTE TOP SCH ×2 (09:41→21:05)
[2021-04-12] MEDS: MAGNESIUM OXIDE 400 MG TABLET PO SCH (09:41)
[2021-04-12] MEDS: SERTRALINE 100 MG TABLET PO SCH ×2 (09:41→21:04)
[2021-04-12] MEDS: methylPREDNISolone 4 MG TABLET PO SCH (09:52)
[2021-04-12] MEDS: LOPERAMIDE 2 MG CAPSULE PO SCH ×2 (09:53→18:18)
[2021-04-12] MEDS: levETIRAcetam LIQUID 100 MG/ML 30 ML/BOTTLE PO SCH ×3 (09:53→21:05)
[2021-04-12] MEDS: cefTRIAXone 1,000 MG in SODIUM CHLORIDE 0.9% 100 ML IV SCH (09:53)
[2021-04-12] MEDS: ONDANSETRON 4 MG/2 ML VIAL IV PRN (09:57)
[2021-04-13] MEDS: ALBUTEROL/IPRATROPIUM 3 ML NEB RESP TX SCH ×4 (00:27→20:23)
[2021-04-13] MEDS: FAMOTIDINE 20 MG/2 ML VIAL IV SCH (03:10)
[2021-04-13] MEDS: LACTATED RINGERS 1,000 ML IV SCH ×3 (03:10→12:12)
[2021-04-13] MEDS: LOPERAMIDE 2 MG CAPSULE PO SCH ×3 (03:10→17:06)
[2021-04-13] MEDS: INSULIN LISPRO 100 UNIT/ML SUBCUT SCH ×4 (03:35→17:52)
[2021-04-13 05:18] LABS: Basophils % 0.2 % (0.0-0.8); Hematocrit 30.3 VOL% (35.7-47.0); Hemoglobin 9.2 GM/DL (12.0-16.0); Immature Granulocytes % 0.8 %; Immature Granulocytes Absolute 0.12 #; Lymphocytes # 1.5 10*3/uL (1.4-4.0); Lymphocytes % 10.5 % (21.3-54.2); Mean Corpuscular HGB Conc 30.4 GM/DL (32-36); Mean Corpuscular Volume 95.3 FL (87-102); Mean Platelet Volume 10.9 FL (9.6-12.0); Monocytes % 4.4 % (1.7-12.7); Neutrophils % 84.1 % (38.7-73.9); Platelet Count 363 T/CUMM (130-400); Red Blood Count 3.18 MC/CUMM (3.8-5.5); Red Cell Distribution Width 15.9 % (9.3-17.3); White Blood Count 14.4 T/CUMM (4-12)
[2021-04-13 05:30] LABS: Calcium 7.7 MG/DL (8.5-10.1); Osmolality,Calculated 280.4 MOS/KG (273-304); Potassium 3.9 MMOL/L (3.5-5.1)
[2021-04-13] MEDS: LEVOTHYROXINE 100 MCG TABLET PO SCH (06:28)
[2021-04-13] MEDS: HEPARIN 5,000 UNIT/1 ML VIAL SUBCUT SCH ×3 (06:28→21:15)
[2021-04-13] MEDS: CLOTRIMAZOLE 10 MG TROCHE PO SCH ×5 (06:28→21:14)
[2021-04-13] MEDS ORDERED: MAGNESIUM SULF RIDER 2 GM/50 ML PREMIX IV PRN (08:14)
[2021-04-13] MEDS ORDERED: MAGNESIUM SULF RIDER 4 GM/100 ML PREMIX IV PRN (08:14)
[2021-04-13] MEDS: LORazepam 2 MG/1 ML VIAL IV PRN ×2 (08:44→12:23)
[2021-04-13] MEDS: MAGNESIUM SULF RIDER 2 GM/50 ML PREMIX IV PRN (09:00)
[2021-04-13] MEDS: ASPIRIN EC 81 MG TABLET PO SCH (11:08)
[2021-04-13] MEDS: methylPREDNISolone 4 MG TABLET PO SCH (11:08)
[2021-04-13] MEDS: SERTRALINE 100 MG TABLET PO SCH ×2 (11:09→21:14)
[2021-04-13] MEDS: CLOPIDOGREL 75 MG TABLET PO SCH (11:10)
[2021-04-13] MEDS: MAGNESIUM OXIDE 400 MG TABLET PO SCH (11:12)
[2021-04-13] MEDS: COLESEVELAM 625 MG TABLET PO SCH (11:12)
[2021-04-13] MEDS: POTASSIUM CHLORIDE 20 MEQ TABLET PO SCH (11:13)
[2021-04-13] MEDS: DESITIN 4OZ/NYSTATIN 15 GRAM MIXTURE PASTE TOP SCH ×2 (11:15→21:17)
[2021-04-13] MEDS: levETIRAcetam LIQUID 100 MG/ML 30 ML/BOTTLE PO SCH ×2 (11:15→21:15)
[2021-04-13] MEDS: cefTRIAXone 1,000 MG in SODIUM CHLORIDE 0.9% 100 ML IV SCH (12:30)
[2021-04-13] MEDS: COLLAGENASE OINT 30 GM TUBE TOP SCH (17:06)
[2021-04-14] MEDS: INSULIN LISPRO 100 UNIT/ML SUBCUT SCH ×4 (02:01→18:14)
[2021-04-14] MEDS: LOPERAMIDE 2 MG CAPSULE PO SCH ×3 (02:11→18:13)
[2021-04-14] MEDS: FAMOTIDINE 20 MG/2 ML VIAL IV SCH (02:11)
[2021-04-14] MEDS: LACTATED RINGERS 1,000 ML IV SCH ×2 (02:18→18:13)
[2021-04-14] MEDS: ALBUTEROL/IPRATROPIUM 3 ML NEB RESP TX SCH ×4 (02:30→20:33)
[2021-04-14 04:47] LABS: Bacteria,Urine Occasional /HPF (Few); Bilirubin,Urine Negative (Negative); Blood, Urine Small mg/dL (Negative); Glucose,Urine (UA) Negative (Negative); Ketones,Urine 5 mg/dL (Negative); Mucus,Urine Occasional /LPF (Occasional); Nitrite,Urine Negative (Negative); Protein,Urine Negative; RBC,Urine 3 /HPF (0-4); Urine Appearance CLEAR (Clear); Urine Color Yellow (Yellow); Urine Specific Gravity 1.013 (1.001-1.035); Urine Urobilinogen < 2.0 EU/DL (0.2-1.0)
[2021-04-14 05:14] LABS: Basophils # 0.1 10*3/uL (0.0-0.2); Basophils % 0.4 % (0.0-0.8); Eosinophils # 0.1 10*3/uL (0.0-0.87); Eosinophils % 0.4 % (0.00-10.9); Hematocrit 29.5 VOL% (35.7-47.0); Hemoglobin 9.3 GM/DL (12.0-16.0); Immature Granulocytes % 0.9 %; Immature Granulocytes Absolute 0.12 #; Lymphocytes # 1.4 10*3/uL (1.4-4.0); Lymphocytes % 9.9 % (21.3-54.2); Mean Corpuscular HGB Conc 31.5 GM/DL (32-36); Mean Corpuscular Volume 94.2 FL (87-102); Mean Platelet Volume 10.7 FL (9.6-12.0); Monocytes % 5.4 % (1.7-12.7); Platelet Count 369 T/CUMM (130-400); Red Blood Count 3.13 MC/CUMM (3.8-5.5); Red Cell Distribution Width 15.9 % (9.3-17.3); White Blood Count 13.7 T/CUMM (4-12)
[2021-04-14 05:37] LABS: Calcium 7.8 MG/DL (8.5-10.1); Osmolality,Calculated 279.4 MOS/KG (273-304); Potassium 3.8 MMOL/L (3.5-5.1)
[2021-04-14] MEDS: LEVOTHYROXINE 100 MCG TABLET PO SCH (05:57)
[2021-04-14] MEDS: CLOTRIMAZOLE 10 MG TROCHE PO SCH ×5 (05:57→21:17)
[2021-04-14] MEDS: HEPARIN 5,000 UNIT/1 ML VIAL SUBCUT SCH ×3 (05:57→21:17)
[2021-04-14] MEDS: cefTRIAXone 1,000 MG in SODIUM CHLORIDE 0.9% 100 ML IV SCH (09:38)
[2021-04-14] MEDS: methylPREDNISolone 4 MG TABLET PO SCH (09:39)
[2021-04-14] MEDS: SERTRALINE 100 MG TABLET PO SCH ×2 (09:39→21:17)
[2021-04-14] MEDS: MAGNESIUM OXIDE 400 MG TABLET PO SCH (09:39)
[2021-04-14] MEDS: POTASSIUM CHLORIDE 20 MEQ TABLET PO SCH (09:40)
[2021-04-14] MEDS: CLOPIDOGREL 75 MG TABLET PO SCH (09:40)
[2021-04-14] MEDS: ASPIRIN EC 81 MG TABLET PO SCH (09:40)
[2021-04-14] MEDS: COLLAGENASE OINT 30 GM TUBE TOP SCH (09:41)
[2021-04-14] MEDS: DESITIN 4OZ/NYSTATIN 15 GRAM MIXTURE PASTE TOP SCH ×2 (09:41→21:33)
[2021-04-14] MEDS: levETIRAcetam LIQUID 100 MG/ML 30 ML/BOTTLE PO SCH ×2 (09:52→21:33)
[2021-04-14] MEDS: HYDROcod/ACETAMIN 7.5-325 MG/15 ML UDCUP PO PRN ×2 (12:45→18:21)
[2021-04-14] MEDS: LORazepam 2 MG/1 ML VIAL IV PRN ×2 (13:17→18:22)
[2021-04-15] MEDS: ALBUTEROL/IPRATROPIUM 3 ML NEB RESP TX SCH ×4 (00:30→20:04)
[2021-04-15] MEDS: INSULIN LISPRO 100 UNIT/ML SUBCUT SCH ×5 (00:45→23:54)
[2021-04-15] MEDS: LOPERAMIDE 2 MG CAPSULE PO SCH ×3 (00:46→17:44)
[2021-04-15] MEDS: FAMOTIDINE 20 MG/2 ML VIAL IV SCH (00:46)
[2021-04-15] MEDS: LORazepam 2 MG/1 ML VIAL IV PRN (04:25)
[2021-04-15 05:51] LABS: Basophils # 0.1 10*3/uL (0.0-0.2); Basophils % 0.4 % (0.0-0.8); Eosinophils # 0.1 10*3/uL (0.0-0.87); Eosinophils % 0.7 % (0.00-10.9); Hematocrit 29.2 VOL% (35.7-47.0); Hemoglobin 8.9 GM/DL (12.0-16.0); Immature Granulocytes % 0.9 %; Lymphocytes # 1.5 10*3/uL (1.4-4.0); Lymphocytes % 13.3 % (21.3-54.2); Mean Corpuscular HGB Conc 30.5 GM/DL (32-36); Mean Corpuscular Volume 95.7 FL (87-102); Monocytes % 5.6 % (1.7-12.7); Neutrophils % 79.1 % (38.7-73.9); Platelet Count 382 T/CUMM (130-400); Red Blood Count 3.05 MC/CUMM (3.8-5.5); Red Cell Distribution Width 15.9 % (9.3-17.3); White Blood Count 11.5 T/CUMM (4-12)
[2021-04-15] MEDS: HEPARIN 5,000 UNIT/1 ML VIAL SUBCUT SCH ×3 (06:13→21:35)
[2021-04-15] MEDS: LEVOTHYROXINE 100 MCG TABLET PO SCH (06:13)
[2021-04-15 06:14] LABS: Calcium 7.9 MG/DL (8.5-10.1); Osmolality,Calculated 276.5 MOS/KG (273-304); Potassium 3.8 MMOL/L (3.5-5.1)
[2021-04-15] MEDS: CLOTRIMAZOLE 10 MG TROCHE PO SCH ×5 (06:14→21:36)
[2021-04-15] MEDS ORDERED: MAGNESIUM SULF RIDER 4 GM/100 ML PREMIX IV ONE (07:58)
[2021-04-15] MEDS: HYDROcod/ACETAMIN 7.5-325 MG/15 ML UDCUP PO PRN (09:14)
[2021-04-15] MEDS: ASPIRIN EC 81 MG TABLET PO SCH (09:15)
[2021-04-15] MEDS: MAGNESIUM OXIDE 400 MG TABLET PO SCH (09:15)
[2021-04-15] MEDS: SERTRALINE 100 MG TABLET PO SCH ×2 (09:15→21:36)
[2021-04-15] MEDS: CLOPIDOGREL 75 MG TABLET PO SCH (09:15)
[2021-04-15] MEDS: POTASSIUM CHLORIDE 20 MEQ TABLET PO SCH (09:15)
[2021-04-15] MEDS: levETIRAcetam LIQUID 100 MG/ML 30 ML/BOTTLE PO SCH ×2 (09:17→21:36)
[2021-04-15] MEDS: methylPREDNISolone 4 MG TABLET PO SCH (09:25)
[2021-04-15] MEDS: DESITIN 4OZ/NYSTATIN 15 GRAM MIXTURE PASTE TOP SCH ×2 (09:26→21:36)
[2021-04-15] MEDS: COLLAGENASE OINT 30 GM TUBE TOP SCH (09:26)
[2021-04-15] MEDS: cefTRIAXone 1,000 MG in SODIUM CHLORIDE 0.9% 100 ML IV SCH (13:36)
[2021-04-15] MEDS: LACTATED RINGERS 1,000 ML IV SCH (13:36)
[2021-04-15] MEDS: MORPHINE 2 MG/1 ML SYRINGE IV PRN (14:57)
[2021-04-16] MEDS: FAMOTIDINE 20 MG/2 ML VIAL IV SCH (00:19)
[2021-04-16] MEDS: LORazepam 2 MG/1 ML VIAL IV PRN ×2 (00:20→12:08)
[2021-04-16] MEDS: MORPHINE 2 MG/1 ML SYRINGE IV PRN (00:21)
[2021-04-16] MEDS: ALBUTEROL/IPRATROPIUM 3 ML NEB RESP TX SCH ×4 (00:46→20:24)
[2021-04-16] MEDS: LOPERAMIDE 2 MG CAPSULE PO SCH ×3 (01:10→16:34)
[2021-04-16 06:09] LABS: Basophils # 0.1 10*3/uL (0.0-0.2); Basophils % 0.6 % (0.0-0.8); Eosinophils # 0.1 10*3/uL (0.0-0.87); Eosinophils % 0.7 % (0.00-10.9); Hematocrit 29.7 VOL% (35.7-47.0); Hemoglobin 9.2 GM/DL (12.0-16.0); Immature Granulocytes Absolute 0.12 #; Lymphocytes # 1.6 10*3/uL (1.4-4.0); Lymphocytes % 13.2 % (21.3-54.2); Mean Corpuscular Volume 94.9 FL (87-102); Mean Platelet Volume 10.8 FL (9.6-12.0); Monocytes % 6.2 % (1.7-12.7); NRBC # 0.02 10*3/uL; Neutrophils % 78.3 % (38.7-73.9); Platelet Count 419 T/CUMM (130-400); Red Blood Count 3.13 MC/CUMM (3.8-5.5); Red Cell Distribution Width 15.9 % (9.3-17.3); White Blood Count 12.4 T/CUMM (4-12)
[2021-04-16] MEDS: HEPARIN 5,000 UNIT/1 ML VIAL SUBCUT SCH ×3 (06:24→21:47)
[2021-04-16] MEDS: CLOTRIMAZOLE 10 MG TROCHE PO SCH ×5 (06:24→21:47)
[2021-04-16] MEDS: INSULIN LISPRO 100 UNIT/ML SUBCUT SCH ×3 (06:24→18:06)
[2021-04-16] MEDS: LEVOTHYROXINE 100 MCG TABLET PO SCH (06:25)
[2021-04-16 06:32] LABS: Calcium 7.9 MG/DL (8.5-10.1); Osmolality,Calculated 273.7 MOS/KG (273-304); Potassium 3.8 MMOL/L (3.5-5.1)
[2021-04-16] MEDS: LACTATED RINGERS 1,000 ML IV SCH ×2 (06:54→11:44)
[2021-04-16] MEDS: HYDROcod/ACETAMIN 7.5-325 MG/15 ML UDCUP PO PRN ×2 (08:45→17:15)
[2021-04-16] MEDS: SERTRALINE 100 MG TABLET PO SCH ×2 (08:53→21:46)
[2021-04-16] MEDS: methylPREDNISolone 4 MG TABLET PO SCH (08:53)
[2021-04-16] MEDS: CLOPIDOGREL 75 MG TABLET PO SCH (08:53)
[2021-04-16] MEDS: ASPIRIN EC 81 MG TABLET PO SCH (08:54)
[2021-04-16] MEDS: COLLAGENASE OINT 30 GM TUBE TOP SCH (08:54)
[2021-04-16] MEDS: POTASSIUM CHLORIDE 20 MEQ TABLET PO SCH (08:54)
[2021-04-16] MEDS: MAGNESIUM OXIDE 400 MG TABLET PO SCH (08:54)
[2021-04-16] MEDS: levETIRAcetam LIQUID 100 MG/ML 30 ML/BOTTLE PO SCH ×3 (08:55→21:46)
[2021-04-16] MEDS: DESITIN 4OZ/NYSTATIN 15 GRAM MIXTURE PASTE TOP SCH ×2 (08:55→21:46)
[2021-04-16] MEDS: cefTRIAXone 1,000 MG in SODIUM CHLORIDE 0.9% 100 ML IV SCH (12:08)
[2021-04-17] MEDS: FAMOTIDINE 20 MG/2 ML VIAL IV SCH (00:14)
[2021-04-17] MEDS: HYDROcod/ACETAMIN 7.5-325 MG/15 ML UDCUP PO PRN ×3 (00:14→21:06)
[2021-04-17] MEDS: INSULIN LISPRO 100 UNIT/ML SUBCUT SCH ×5 (01:53→20:23)
[2021-04-17] MEDS: LOPERAMIDE 2 MG CAPSULE PO SCH ×3 (01:54→20:23)
[2021-04-17] MEDS: ALBUTEROL/IPRATROPIUM 3 ML NEB RESP TX SCH ×4 (02:47→19:02)
[2021-04-17] MEDS: LORazepam 2 MG/1 ML VIAL IV PRN ×3 (03:04→15:40)
[2021-04-17] MEDS: CLOTRIMAZOLE 10 MG TROCHE PO SCH ×5 (06:43→21:06)
[2021-04-17] MEDS: LEVOTHYROXINE 100 MCG TABLET PO SCH (06:43)
[2021-04-17] MEDS: HEPARIN 5,000 UNIT/1 ML VIAL SUBCUT SCH ×3 (06:43→21:07)
[2021-04-17] MEDS: LACTATED RINGERS 1,000 ML IV SCH ×3 (09:03→20:25)
[2021-04-17 09:55] LABS: Basophils # 0.1 10*3/uL (0.0-0.2); Basophils % 0.6 % (0.0-0.8); Eosinophils # 0.1 10*3/uL (0.0-0.87); Eosinophils % 0.7 % (0.00-10.9); Hematocrit 32.6 VOL% (35.7-47.0); Hemoglobin 10.1 GM/DL (12.0-16.0); Immature Granulocytes % 0.8 %; Immature Granulocytes Absolute 0.09 #; Lymphocytes # 1.7 10*3/uL (1.4-4.0); Lymphocytes % 15.3 % (21.3-54.2); Mean Corpuscular Volume 93.4 FL (87-102); Mean Platelet Volume 10.6 FL (9.6-12.0); Monocytes % 6.4 % (1.7-12.7); NRBC # 0.02 10*3/uL; Neutrophils % 76.2 % (38.7-73.9); Platelet Count 453 T/CUMM (130-400); Red Blood Count 3.49 MC/CUMM (3.8-5.5)
[2021-04-17 10:21] LABS: Calcium 8.3 MG/DL (8.5-10.1); Osmolality,Calculated 276.5 MOS/KG (273-304); Potassium 4.2 MMOL/L (3.5-5.1)
[2021-04-17] MEDS: POTASSIUM CHLORIDE 20 MEQ TABLET PO SCH (10:37)
[2021-04-17] MEDS: ASPIRIN EC 81 MG TABLET PO SCH (10:37)
[2021-04-17] MEDS: methylPREDNISolone 4 MG TABLET PO SCH (10:39)
[2021-04-17] MEDS: MAGNESIUM OXIDE 400 MG TABLET PO SCH (10:39)
[2021-04-17] MEDS: CLOPIDOGREL 75 MG TABLET PO SCH (10:40)
[2021-04-17] MEDS: SERTRALINE 100 MG TABLET PO SCH ×2 (10:41→20:59)
[2021-04-17] MEDS: levETIRAcetam LIQUID 100 MG/ML 30 ML/BOTTLE PO SCH ×2 (14:37→21:06)
[2021-04-17] MEDS: DESITIN 4OZ/NYSTATIN 15 GRAM MIXTURE PASTE TOP SCH ×2 (14:40→21:00)
[2021-04-17] MEDS: COLLAGENASE OINT 30 GM TUBE TOP SCH (14:40)
[2021-04-17] MEDS: cefTRIAXone 1,000 MG in SODIUM CHLORIDE 0.9% 100 ML IV SCH (17:00)
[2021-04-17] MEDS: HALOPERIDOL 5 MG/ML AMP IM PRN (21:47)
[2021-04-18] MEDS: ALBUTEROL/IPRATROPIUM 3 ML NEB RESP TX SCH ×4 (00:50→19:46)
[2021-04-18] MEDS: FAMOTIDINE 20 MG/2 ML VIAL IV SCH (00:56)
[2021-04-18] MEDS: INSULIN LISPRO 100 UNIT/ML SUBCUT SCH ×4 (02:41→17:47)
[2021-04-18] MEDS: LOPERAMIDE 2 MG CAPSULE PO SCH ×3 (02:41→17:59)
[2021-04-18 05:51] LABS: Basophils # 0.1 10*3/uL (0.0-0.2); Basophils % 0.7 % (0.0-0.8); Eosinophils # 0.1 10*3/uL (0.0-0.87); Eosinophils % 0.6 % (0.00-10.9); Hematocrit 31.4 VOL% (35.7-47.0); Hemoglobin 9.8 GM/DL (12.0-16.0); Immature Granulocytes % 0.9 %; Immature Granulocytes Absolute 0.12 #; Lymphocytes # 1.8 10*3/uL (1.4-4.0); Lymphocytes % 13.8 % (21.3-54.2); Mean Corpuscular HGB Conc 31.2 GM/DL (32-36); Mean Platelet Volume 10.7 FL (9.6-12.0); Monocytes % 7.3 % (1.7-12.7); Neutrophils % 76.7 % (38.7-73.9); Platelet Count 450 T/CUMM (130-400); Red Blood Count 3.34 MC/CUMM (3.8-5.5); Red Cell Distribution Width 16.2 % (9.3-17.3)
[2021-04-18 06:11] LABS: Bilirubin,Total 0.5 MG/DL (0.20-1.00); Calcium 7.9 MG/DL (8.5-10.1); Osmolality,Calculated 281.1 MOS/KG (273-304); Potassium 3.4 MMOL/L (3.5-5.1); Total Protein 6.1 G/DL (6.4-8.2)
[2021-04-18] MEDS: HEPARIN 5,000 UNIT/1 ML VIAL SUBCUT SCH ×2 (06:32→15:10)
[2021-04-18] MEDS: CLOTRIMAZOLE 10 MG TROCHE PO SCH ×5 (06:33→21:55)
[2021-04-18] MEDS: LEVOTHYROXINE 100 MCG TABLET PO SCH (06:34)
[2021-04-18] MEDS: LACTATED RINGERS 1,000 ML IV SCH (07:08)
[2021-04-18] MEDS: DEXTROSE 5% NACL 0.45% 1,000 ML IV SCH ×2 (10:00→23:48)
[2021-04-18] MEDS: POTASSIUM CHLORIDE 20 MEQ TABLET PO SCH (10:02)
[2021-04-18] MEDS: SERTRALINE 100 MG TABLET PO SCH ×2 (10:02→21:51)
[2021-04-18] MEDS: MAGNESIUM OXIDE 400 MG TABLET PO SCH (10:02)
[2021-04-18] MEDS: ASPIRIN EC 81 MG TABLET PO SCH (10:03)
[2021-04-18] MEDS: CLOPIDOGREL 75 MG TABLET PO SCH (10:03)
[2021-04-18] MEDS: HYDROcod/ACETAMIN 7.5-325 MG/15 ML UDCUP PO PRN ×2 (10:03→15:13)
[2021-04-18] MEDS: methylPREDNISolone 4 MG TABLET PO SCH (10:03)
[2021-04-18] MEDS: COLLAGENASE OINT 30 GM TUBE TOP SCH (10:44)
[2021-04-18] MEDS: levETIRAcetam LIQUID 100 MG/ML 30 ML/BOTTLE PO SCH ×2 (10:44→21:50)
[2021-04-18] MEDS: DESITIN 4OZ/NYSTATIN 15 GRAM MIXTURE PASTE TOP SCH ×2 (10:45→21:50)
[2021-04-18] MEDS: LORazepam 2 MG/1 ML VIAL IV PRN (18:00)
[2021-04-19] MEDS: ALBUTEROL/IPRATROPIUM 3 ML NEB RESP TX SCH ×4 (00:15→19:08)
[2021-04-19] MEDS: FAMOTIDINE 20 MG/2 ML VIAL IV SCH (00:29)
[2021-04-19] MEDS: HYDROcod/ACETAMIN 7.5-325 MG/15 ML UDCUP PO PRN ×3 (00:29→20:03)
[2021-04-19] MEDS: LOPERAMIDE 2 MG CAPSULE PO SCH ×3 (00:32→17:29)
[2021-04-19] MEDS: INSULIN LISPRO 100 UNIT/ML SUBCUT SCH ×4 (00:34→17:54)
[2021-04-19] MEDS: LEVOTHYROXINE 100 MCG TABLET PO SCH (05:38)
[2021-04-19] MEDS: CLOTRIMAZOLE 10 MG TROCHE PO SCH ×5 (05:38→22:06)
[2021-04-19 06:05] LABS: Basophils # 0.1 10*3/uL (0.0-0.2); Basophils % 0.6 % (0.0-0.8); Eosinophils # 0.1 10*3/uL (0.0-0.87); Eosinophils % 0.6 % (0.00-10.9); Hematocrit 28.6 VOL% (35.7-47.0); Hemoglobin 8.6 GM/DL (12.0-16.0); Immature Granulocytes % 0.7 %; Immature Granulocytes Absolute 0.09 #; Lymphocytes # 2.1 10*3/uL (1.4-4.0); Lymphocytes % 17.2 % (21.3-54.2); Mean Corpuscular HGB Conc 30.1 GM/DL (32-36); Mean Corpuscular Volume 96.6 FL (87-102); Mean Platelet Volume 10.7 FL (9.6-12.0); Monocytes % 8.1 % (1.7-12.7); Neutrophils % 72.8 % (38.7-73.9); Platelet Count 437 T/CUMM (130-400); Red Blood Count 2.96 MC/CUMM (3.8-5.5); Red Cell Distribution Width 16.5 % (9.3-17.3); White Blood Count 12.4 T/CUMM (4-12)
[2021-04-19 06:19] LABS: Calcium 7.9 MG/DL (8.5-10.1); Osmolality,Calculated 277.4 MOS/KG (273-304); Potassium 3.3 MMOL/L (3.5-5.1)
[2021-04-19] MEDS ORDERED: MAGNESIUM SULF RIDER 4 GM/100 ML PREMIX IV ONE (07:53)
[2021-04-19] MEDS: DESITIN 4OZ/NYSTATIN 15 GRAM MIXTURE PASTE TOP SCH ×2 (10:09→22:05)
[2021-04-19] MEDS: COLLAGENASE OINT 30 GM TUBE TOP SCH (10:09)
[2021-04-19] MEDS: SERTRALINE 100 MG TABLET PO SCH ×2 (10:10→22:05)
[2021-04-19] MEDS: CLOPIDOGREL 75 MG TABLET PO SCH (10:10)
[2021-04-19] MEDS: LORazepam 2 MG/1 ML VIAL IV PRN (11:13)
[2021-04-19] MEDS ORDERED: LIDOCAINE 2% 5 ML VIAL ONE (11:28)
[2021-04-19] MEDS ORDERED: fentaNYL 100 MCG/2 ML VIAL ONE ×2 (11:28→12:06)
[2021-04-19] MEDS ORDERED: propofoL 200 MG/20 ML VIAL IV ONE (11:28)
[2021-04-19] MEDS ORDERED: MIDAZOLAM 2 MG/2 ML VIAL ONE (11:28)
[2021-04-19] MEDS ORDERED: ROCURONIUM 50 MG/5 ML VIAL IV ONE (11:28)
[2021-04-19] MEDS: LEVOFLOXACIN INJ 750 MG/150 ML PREMIX IV ONE (11:33)
[2021-04-19] MEDS: levETIRAcetam LIQUID 100 MG/ML 30 ML/BOTTLE PO SCH ×2 (11:53→22:05)
[2021-04-19] MEDS ORDERED: LACTATED RINGERS 1,000 ML IV SCH (12:00)
[2021-04-19] MEDS ORDERED: ETOMIDATE 40 MG/20 ML VIAL IV ONE (12:07)
[2021-04-19] MEDS ORDERED: SEVOFLURANE 1 UNIT/15 MINUTE INH ONE (12:07)
[2021-04-19] MEDS ORDERED: ONDANSETRON 4 MG/2 ML VIAL ONE (12:07)
[2021-04-19] MEDS: methylPREDNISolone 4 MG TABLET PO SCH (12:14)
[2021-04-19] MEDS: MAGNESIUM OXIDE 400 MG TABLET PO SCH (12:14)
[2021-04-19] MEDS: ASPIRIN EC 81 MG TABLET PO SCH (12:14)
[2021-04-19] MEDS: POTASSIUM CHLORIDE 20 MEQ TABLET PO SCH (12:14)
[2021-04-19] MEDS ORDERED: SUGAMMADEX 200 MG/2 ML VIAL IV ONE (12:17)
[2021-04-19] MEDS ORDERED: PHENYLEPHRINE 1 MG/10 ML SYRINGE IV ONE (12:18)
[2021-04-19] MEDS: DEXTROSE 5% NACL 0.45% 1,000 ML IV SCH (14:34)
[2021-04-19] MEDS: HALOPERIDOL 5 MG/ML AMP IM PRN (22:59)
[2021-04-20] MEDS: ALBUTEROL/IPRATROPIUM 3 ML NEB RESP TX SCH ×4 (00:17→18:11)
[2021-04-20] MEDS: INSULIN LISPRO 100 UNIT/ML SUBCUT SCH ×4 (01:06→19:18)
[2021-04-20] MEDS: LOPERAMIDE 2 MG CAPSULE PO SCH ×3 (01:07→17:11)
[2021-04-20] MEDS: FAMOTIDINE 20 MG/2 ML VIAL IV SCH (01:07)
[2021-04-20] MEDS: HYDROcod/ACETAMIN 7.5-325 MG/15 ML UDCUP PO PRN ×3 (01:51→20:06)
[2021-04-20 05:03] LABS: Basophils # 0.1 10*3/uL (0.0-0.2); Basophils % 0.4 % (0.0-0.8); Hematocrit 26.4 VOL% (35.7-47.0); Immature Granulocytes % 0.8 %; Immature Granulocytes Absolute 0.09 #; Lymphocytes # 1.7 10*3/uL (1.4-4.0); Lymphocytes % 14.5 % (21.3-54.2); Mean Corpuscular HGB Conc 30.3 GM/DL (32-36); Mean Corpuscular Volume 96.4 FL (87-102); Mean Platelet Volume 10.5 FL (9.6-12.0); Monocytes % 9.2 % (1.7-12.7); Neutrophils % 75.1 % (38.7-73.9); Platelet Count 395 T/CUMM (130-400); Red Blood Count 2.74 MC/CUMM (3.8-5.5); Red Cell Distribution Width 16.7 % (9.3-17.3); White Blood Count 11.5 T/CUMM (4-12)
[2021-04-20 05:15] LABS: Calcium 7.4 MG/DL (8.5-10.1); Osmolality,Calculated 284.7 MOS/KG (273-304); Potassium 2.9 MMOL/L (3.5-5.1)
[2021-04-20 05:19] LABS: Alanine Aminotransferase 29 U/L (13-56); Albumin 1.7 G/DL (3.4-5.0); Alkaline Phosphatase 97 U/L (45-117); Aspartate Amino Transferase 46 U/L (0-37); Bilirubin,Direct < 0.100 MG/DL (0.0-0.20); Bilirubin,Indirect 1.1 MG/DL (0.0-1.0); Total Protein 4.9 G/DL (6.4-8.2)
[2021-04-20] MEDS: POTASSIUM CHLORIDE 20 MEQ TABLET PO PRN (06:00)
[2021-04-20] MEDS: CLOTRIMAZOLE 10 MG TROCHE PO SCH (06:02)
[2021-04-20] MEDS: LEVOTHYROXINE 100 MCG TABLET PO SCH (06:03)
[2021-04-20] MEDS ORDERED: GLUCAGON 1 MG VIAL IM PRN (06:59)
[2021-04-20] MEDS ORDERED: DEXTROSE 50% 25 GM/50 ML VIAL IV PRN (06:59)
[2021-04-20] MEDS: DEXTROSE 5% NACL 0.45% 1,000 ML IV SCH (09:40)
[2021-04-20] MEDS: MAGNESIUM OXIDE 400 MG TABLET PO SCH (09:44)
[2021-04-20] MEDS: SERTRALINE 100 MG TABLET PO SCH ×2 (09:44→21:46)
[2021-04-20] MEDS: ASPIRIN EC 81 MG TABLET PO SCH (09:44)
[2021-04-20] MEDS: methylPREDNISolone 4 MG TABLET PO SCH (09:44)
[2021-04-20] MEDS: POTASSIUM CHLORIDE 20 MEQ TABLET PO SCH (09:44)
[2021-04-20] MEDS: CLOPIDOGREL 75 MG TABLET PO SCH (09:45)
[2021-04-20] MEDS: DESITIN 4OZ/NYSTATIN 15 GRAM MIXTURE PASTE TOP SCH ×2 (09:45→21:46)
[2021-04-20] MEDS: COLLAGENASE OINT 30 GM TUBE TOP SCH (09:45)
[2021-04-20] MEDS: levETIRAcetam LIQUID 100 MG/ML 30 ML/BOTTLE PO SCH ×2 (09:54→21:46)
[2021-04-20] MEDS: MAGNESIUM SULF RIDER 2 GM/50 ML PREMIX IV PRN (12:38)
[2021-04-20] MEDS ORDERED: POTASSIUM CHLORIDE 20 MEQ TABLET PO ONE (15:00)
[2021-04-21] MEDS: INSULIN LISPRO 100 UNIT/ML SUBCUT SCH ×4 (00:03→18:03)
[2021-04-21] MEDS: ALBUTEROL/IPRATROPIUM 3 ML NEB RESP TX SCH ×4 (00:29→20:10)
[2021-04-21] MEDS: FAMOTIDINE 20 MG/2 ML VIAL IV SCH (01:51)
[2021-04-21] MEDS: LOPERAMIDE 2 MG CAPSULE PO SCH ×3 (01:52→18:05)
[2021-04-21] MEDS: HYDROcod/ACETAMIN 7.5-325 MG/15 ML UDCUP PO PRN ×3 (03:41→18:00)
[2021-04-21 05:52] LABS: Hemoglobin 9.3 GM/DL (12.0-16.0); Red Blood Count 3.19 MC/CUMM (3.8-5.5)
[2021-04-21 05:53] LABS: Basophils # 0.1 10*3/uL (0.0-0.2); Basophils % 0.4 % (0.0-0.8); Eosinophils # 0.1 10*3/uL (0.0-0.87); Hematocrit 30.6 VOL% (35.7-47.0); Immature Granulocytes % 0.6 %; Immature Granulocytes Absolute 0.07 #; Lymphocytes # 1.7 10*3/uL (1.4-4.0); Lymphocytes % 14.4 % (21.3-54.2); Mean Corpuscular HGB Conc 30.4 GM/DL (32-36); Mean Corpuscular Volume 95.9 FL (87-102); Mean Platelet Volume 10.5 FL (9.6-12.0); Neutrophils % 74.6 % (38.7-73.9); Platelet Count 452 T/CUMM (130-400); Red Cell Distribution Width 16.9 % (9.3-17.3)
[2021-04-21 06:05] LABS: Calcium 8.3 MG/DL (8.5-10.1); Osmolality,Calculated 281.3 MOS/KG (273-304); Potassium 4.6 MMOL/L (3.5-5.1)
[2021-04-21] MEDS: methylPREDNISolone 4 MG TABLET PO SCH (08:45)
[2021-04-21] MEDS: POTASSIUM CHLORIDE 20 MEQ TABLET PO SCH (08:46)
[2021-04-21] MEDS: ASPIRIN EC 81 MG TABLET PO SCH (08:46)
[2021-04-21] MEDS: MAGNESIUM OXIDE 400 MG TABLET PO SCH (08:46)
[2021-04-21] MEDS: CLOPIDOGREL 75 MG TABLET PO SCH (08:46)
[2021-04-21] MEDS: SERTRALINE 100 MG TABLET PO SCH ×2 (08:46→20:39)
[2021-04-21] MEDS: DESITIN 4OZ/NYSTATIN 15 GRAM MIXTURE PASTE TOP SCH ×2 (08:52→20:42)
[2021-04-21] MEDS: COLLAGENASE OINT 30 GM TUBE TOP SCH (08:52)
[2021-04-21] MEDS: levETIRAcetam LIQUID 100 MG/ML 30 ML/BOTTLE PO SCH ×2 (09:01→20:39)
[2021-04-21] MEDS: ONDANSETRON 4 MG/2 ML VIAL IV PRN ×2 (09:52→15:30)
[2021-04-21] MEDS: LEVOTHYROXINE 100 MCG TABLET PO SCH (11:42)
[2021-04-21] MEDS: LORazepam 2 MG/1 ML VIAL IV PRN ×2 (11:54→18:01)
[2021-04-21] MEDS: LEVOFLOXACIN INJ 750 MG/150 ML PREMIX IV ONE (13:34)
[2021-04-22] MEDS: INSULIN LISPRO 100 UNIT/ML SUBCUT SCH ×4 (00:05→18:15)
[2021-04-22] MEDS: FAMOTIDINE 20 MG/2 ML VIAL IV SCH (01:05)
[2021-04-22] MEDS: LOPERAMIDE 2 MG CAPSULE PO SCH ×3 (01:07→18:14)
[2021-04-22] MEDS: HYDROcod/ACETAMIN 7.5-325 MG/15 ML UDCUP PO PRN ×4 (01:12→20:51)
[2021-04-22] MEDS: ALBUTEROL/IPRATROPIUM 3 ML NEB RESP TX SCH ×5 (02:33→19:21)
[2021-04-22] MEDS: LEVOTHYROXINE 100 MCG TABLET PO SCH (06:04)
[2021-04-22] MEDS: ASPIRIN EC 81 MG TABLET PO SCH (11:04)
[2021-04-22] MEDS: methylPREDNISolone 4 MG TABLET PO SCH (11:04)
[2021-04-22] MEDS: CLOPIDOGREL 75 MG TABLET PO SCH (11:04)
[2021-04-22] MEDS: POTASSIUM CHLORIDE 20 MEQ TABLET PO SCH (11:04)
[2021-04-22] MEDS: DESITIN 4OZ/NYSTATIN 15 GRAM MIXTURE PASTE TOP SCH ×2 (11:05→21:02)
[2021-04-22] MEDS: COLLAGENASE OINT 30 GM TUBE TOP SCH (11:05)
[2021-04-22] MEDS: SERTRALINE 100 MG TABLET PO SCH ×2 (11:05→20:52)
[2021-04-22] MEDS: levETIRAcetam LIQUID 100 MG/ML 30 ML/BOTTLE PO SCH ×2 (11:06→20:50)
[2021-04-22] MEDS: MAGNESIUM OXIDE 400 MG TABLET PO SCH (11:18)
[2021-04-22] MEDS: ONDANSETRON 4 MG/2 ML VIAL IV PRN (15:24)
[2021-04-23] MEDS: ALBUTEROL/IPRATROPIUM 3 ML NEB RESP TX SCH ×4 (00:12→19:39)
[2021-04-23] MEDS: INSULIN LISPRO 100 UNIT/ML SUBCUT SCH ×5 (01:45→23:51)
[2021-04-23] MEDS: LOPERAMIDE 2 MG CAPSULE PO SCH ×3 (01:47→17:43)
[2021-04-23] MEDS: FAMOTIDINE 20 MG/2 ML VIAL IV SCH (01:47)
[2021-04-23] MEDS: HYDROcod/ACETAMIN 7.5-325 MG/15 ML UDCUP PO PRN ×4 (03:46→19:44)
[2021-04-23 05:33] LABS: Basophils # 0.1 10*3/uL (0.0-0.2); Basophils % 0.8 % (0.0-0.8); Eosinophils # 0.1 10*3/uL (0.0-0.87); Eosinophils % 0.7 % (0.00-10.9); Hematocrit 28.7 VOL% (35.7-47.0); Hemoglobin 8.8 GM/DL (12.0-16.0); Immature Granulocytes % 0.8 %; Lymphocytes # 2.3 10*3/uL (1.4-4.0); Lymphocytes % 18.5 % (21.3-54.2); Mean Corpuscular HGB Conc 30.7 GM/DL (32-36); Mean Corpuscular Volume 95.3 FL (87-102); Mean Platelet Volume 10.5 FL (9.6-12.0); Monocytes % 9.1 % (1.7-12.7); Neutrophils % 70.1 % (38.7-73.9); Platelet Count 435 T/CUMM (130-400); Red Blood Count 3.01 MC/CUMM (3.8-5.5); Red Cell Distribution Width 16.5 % (9.3-17.3); White Blood Count 12.6 T/CUMM (4-12)
[2021-04-23] MEDS: LEVOTHYROXINE 100 MCG TABLET PO SCH (06:43)
[2021-04-23] MEDS: SERTRALINE 100 MG TABLET PO SCH ×2 (09:26→19:44)
[2021-04-23] MEDS: CLOPIDOGREL 75 MG TABLET PO SCH (09:26)
[2021-04-23] MEDS: ASPIRIN EC 81 MG TABLET PO SCH (09:26)
[2021-04-23] MEDS: methylPREDNISolone 4 MG TABLET PO SCH (09:26)
[2021-04-23] MEDS: COLLAGENASE OINT 30 GM TUBE TOP SCH (09:27)
[2021-04-23] MEDS: levETIRAcetam LIQUID 100 MG/ML 30 ML/BOTTLE PO SCH ×2 (09:27→19:44)
[2021-04-23] MEDS: MAGNESIUM OXIDE 400 MG TABLET PO SCH (09:27)
[2021-04-23] MEDS: POTASSIUM CHLORIDE 20 MEQ TABLET PO SCH (09:27)
[2021-04-23] MEDS: DESITIN 4OZ/NYSTATIN 15 GRAM MIXTURE PASTE TOP SCH ×2 (09:27→19:44)
[2021-04-23] MEDS: ONDANSETRON 4 MG/2 ML VIAL IV PRN (15:46)
[2021-04-23] MEDS ORDERED: INFLUENZA VIRUS VACCINE 0.5 ML SYRINGE IM ONE (21:11)
[2021-04-23 22:33] LABS: Bilirubin,Urine Negative (Negative); Blood, Urine Small mg/dL (Negative); Glucose,Urine (UA) Negative (Negative); Hyaline Casts,Urine 4 /LPF (0-3); Ketones,Urine Negative (Negative); Mucus,Urine Occasional /LPF (Occasional); Nitrite,Urine Negative (Negative); Protein,Urine Negative; RBC,Urine 12 /HPF (0-4); Squamous Epithelial Cell,Urine Occasional /HPF (0-10); Urine Appearance CLEAR (Clear); Urine Color Yellow (Yellow); Urine Specific Gravity 1.019 (1.001-1.035); Urine Urobilinogen < 2.0 EU/DL (0.2-1.0)
[2021-04-23] MEDS: HALOPERIDOL 5 MG/ML AMP IM PRN (22:43)
[2021-04-24] MEDS: ALBUTEROL/IPRATROPIUM 3 ML NEB RESP TX SCH ×2 (01:17→07:41)
[2021-04-24] MEDS: FAMOTIDINE 20 MG/2 ML VIAL IV SCH (02:02)
[2021-04-24] MEDS ORDERED: LOPERAMIDE 2 MG CAPSULE PO PRN (02:14)
[2021-04-24] MEDS: LOPERAMIDE 2 MG CAPSULE PO SCH (02:24)
[2021-04-24 04:55] LABS: Basophils # 0.1 10*3/uL (0.0-0.2); Basophils % 0.7 % (0.0-0.8); Eosinophils # 0.1 10*3/uL (0.0-0.87); Eosinophils % 0.8 % (0.00-10.9); Hematocrit 31.5 VOL% (35.7-47.0); Hemoglobin 9.6 GM/DL (12.0-16.0); Immature Granulocytes Absolute 0.27 #; Lymphocytes # 2.1 10*3/uL (1.4-4.0); Lymphocytes % 14.9 % (21.3-54.2); Mean Corpuscular HGB Conc 30.5 GM/DL (32-36); Mean Corpuscular Volume 94.9 FL (87-102); Mean Platelet Volume 10.5 FL (9.6-12.0); Monocytes % 9.3 % (1.7-12.7); Neutrophils % 72.3 % (38.7-73.9); Platelet Count 459 T/CUMM (130-400); Red Blood Count 3.32 MC/CUMM (3.8-5.5); Red Cell Distribution Width 16.4 % (9.3-17.3); White Blood Count 13.8 T/CUMM (4-12)
[2021-04-24 05:23] LABS: Band Neutrophils 1 % (0-10); Eosinophils 1 % (0-10); Hypochromasia 1+; Lymphocytes 13 % (20-55); Microcytosis 1+; Platelet Estimate Adequate; Segmented Neutrophils 78 % (50-85); Total Cells Counted 100
[2021-04-24] MEDS: LEVOTHYROXINE 100 MCG TABLET PO SCH (05:54)
[2021-04-24 06:02] LABS: Calcium 8.6 MG/DL (8.5-10.1); Osmolality,Calculated 276.8 MOS/KG (273-304); Potassium 3.8 MMOL/L (3.5-5.1)
[2021-04-24] MEDS: INSULIN LISPRO 100 UNIT/ML SUBCUT SCH ×2 (06:26→13:54)
[2021-04-24] MEDS: CLOPIDOGREL 75 MG TABLET PO SCH (09:43)
[2021-04-24] MEDS: methylPREDNISolone 4 MG TABLET PO SCH (09:43)
[2021-04-24] MEDS: SERTRALINE 100 MG TABLET PO SCH (09:43)
[2021-04-24] MEDS: MAGNESIUM OXIDE 400 MG TABLET PO SCH (09:43)
[2021-04-24] MEDS: POTASSIUM CHLORIDE 20 MEQ TABLET PO SCH (09:43)
[2021-04-24] MEDS: ASPIRIN EC 81 MG TABLET PO SCH (09:43)
[2021-04-24] MEDS: COLLAGENASE OINT 30 GM TUBE TOP SCH (09:44)
[2021-04-24] MEDS: DESITIN 4OZ/NYSTATIN 15 GRAM MIXTURE PASTE TOP SCH (09:44)
[2021-04-24] MEDS: levETIRAcetam LIQUID 100 MG/ML 30 ML/BOTTLE PO SCH (09:44)
[2021-04-24] MEDS: HYDROcod/ACETAMIN 7.5-325 MG/15 ML UDCUP PO PRN (11:57)
[2021-04-24] MEDS: LORazepam 2 MG/1 ML VIAL IV PRN (12:36)
[2021-04-24 12:41] VITALS: BP 134/60
[2021-04-24] MEDS ORDERED: ENOXAPARIN 80 MG/0.8 ML SYRINGE SUBCUT ONE (13:12)
== END 2021-04-24 15:17 | DRG 166 ==
LOC: EDBD → EDUNIT# → N.ED 18:31 → N.EDINP 03-31 → SUATTDRO 03-31 → N.ICU 03-31 09:34 → N.4E 04-04 17:22
PROVIDERS: ADMIT Internal Medicine; ATTEND Internal Medicine

== ENCOUNTER 2021-05-02 16:35 | Inpatient (IN) ==
[2021-05-02] MEDS ORDERED: SODIUM CHLORIDE 0.9% 500 ML IV STA (17:20)
[2021-05-02] MEDS ORDERED: ONDANSETRON 4 MG/2 ML VIAL IV STA (17:20)
[2021-05-02] MEDS ORDERED: PIPERACILLIN/TAZOBACTAM 3,375 MG in SODIUM CHLORIDE 0.9% 100 ML IV STA (17:20)
[2021-05-02 18:18] LABS: Basophils % 0.2 % (0.0-0.8); Hematocrit 32.7 VOL% (35.7-47.0); Hemoglobin 10.2 GM/DL (12.0-16.0); Immature Granulocytes % 1.2 %; Immature Granulocytes Absolute 0.17 #; Lymphocytes # 2.3 10*3/uL (1.4-4.0); Lymphocytes % 16.9 % (21.3-54.2); Mean Corpuscular HGB Conc 31.2 GM/DL (32-36); Mean Corpuscular Volume 91.6 FL (87-102); Mean Platelet Volume 10.9 FL (9.6-12.0); Monocytes % 8.4 % (1.7-12.7); Neutrophils % 73.3 % (38.7-73.9); Platelet Count 490 T/CUMM (130-400); Red Blood Count 3.57 MC/CUMM (3.8-5.5); Red Cell Distribution Width 15.5 % (9.3-17.3); White Blood Count 13.8 T/CUMM (4-12)
[2021-05-02 18:32] LABS: Alanine Aminotransferase 16 U/L (13-56); Albumin 2.1 G/DL (3.4-5.0); Alkaline Phosphatase 145 U/L (45-117); Aspartate Amino Transferase 20 U/L (0-37); Bilirubin,Total < 0.39 MG/DL (0.20-1.00); Blood Urea Nitrogen 36 MG/DL (7-18); Carbon Dioxide 24 MMOL/L (21-32); Estimated Glom Filtration Rate 73 ML/MIN; Glucose 115 MG/DL (74-106); Osmolality,Calculated 276.2 MOS/KG (273-304); Potassium 3.5 MMOL/L (3.5-5.1); Sodium 134 MMOL/L (136-145); Total Protein 7.3 G/DL (6.4-8.2)
[2021-05-02 18:38] LABS: Band Neutrophils 4 % (0-10); Hypochromasia 1+; Lymphocytes 14 % (20-55); Microcytosis 1+; Platelet Estimate Adequate; Segmented Neutrophils 75 % (50-85); Total Cells Counted 100
[2021-05-02 19:17] LABS: Bilirubin,Urine Negative (Negative); Blood, Urine Negative (Negative); Glucose,Urine (UA) Negative (Negative); Hyaline Casts,Urine 3 /LPF (0-3); Ketones,Urine Negative (Negative); Mucus,Urine Occasional /LPF (Occasional); Nitrite,Urine Negative (Negative); Protein,Urine Negative; RBC,Urine 74 /HPF (0-4); Squamous Epithelial Cell,Urine Occasional /HPF (0-10); Urine Appearance Slightly Hazy (Clear); Urine Color Yellow (Yellow); Urine Specific Gravity 1.023 (1.001-1.035)
[2021-05-02] MEDS ORDERED: GLUCAGON 1 MG VIAL IM PRN ×2 (19:32)
[2021-05-02] MEDS ORDERED: LACTULOSE 20 GM/30 ML UDCUP PO PRN (19:32)
[2021-05-02] MEDS ORDERED: DEXTROSE 50% 25 GM/50 ML VIAL IV PRN (19:32)
[2021-05-02] MEDS ORDERED: ACETAMINOPHEN 325 MG TABLET PO PRN (19:32)
[2021-05-02] MEDS ORDERED: VANCOMYCIN INJ 1,500 MG in SODIUM CHLORIDE 0.9% 500 ML IV SCH (21:00)
[2021-05-02] MEDS: SODIUM CHLORIDE 0.9% 1,000 ML IV SCH (21:12)
[2021-05-02] MEDS: ENOXAPARIN 40 MG/0.4 ML SYRINGE SUBCUT SCH (21:12)
[2021-05-02] MEDS ORDERED: traMADol 50 MG TABLET PO PRN (21:27)
[2021-05-02] MEDS ORDERED: VANCOMYCIN INJ 1,750 MG in SODIUM CHLORIDE 0.9% 500 ML IV ONE (23:00)
[2021-05-02] MEDS ORDERED: IPRATROPIUM 500 MCG/2.5 ML NEB RESP TX ONE (23:08)
[2021-05-02] MEDS: ALBUTEROL/IPRATROPIUM 3 ML NEB RESP TX SCH (23:14)
[2021-05-03] MEDS: DOCUSATE SODIUM 100 MG CAPSULE PO SCH ×3 (00:05→22:03)
[2021-05-03] MEDS: INSULIN REGULAR 100 UNIT/ML SUBCUT SCH ×5 (00:07→22:07)
[2021-05-03] MEDS: methylPREDNISolone SOD SUC 40 MG/1 ML VIAL IV SCH ×3 (00:07→22:03)
[2021-05-03] MEDS: levETIRAcetam 500 MG TABLET PO SCH ×3 (00:07→22:07)
[2021-05-03] MEDS: ZALEPLON 5 MG CAPSULE PO SCH ×2 (00:08→22:03)
[2021-05-03] MEDS ORDERED: HYDROmorphone 2 MG/1 ML VIAL IV ONE (06:14)
[2021-05-03] MEDS: ONDANSETRON 4 MG/2 ML VIAL IV PRN (06:25)
[2021-05-03] MEDS: PIPERACILLIN/TAZOBACTAM 3,375 MG in SODIUM CHLORIDE 0.9% 100 ML IV SCH ×3 (06:28→22:02)
[2021-05-03] MEDS: SODIUM CHLORIDE 0.9% 1,000 ML IV SCH ×3 (06:29→22:08)
[2021-05-03] MEDS: LEVOTHYROXINE 100 MCG TABLET PO SCH (06:38)
[2021-05-03 06:40] LABS: Basophils % 0.2 % (0.0-0.8); Hematocrit 28.4 VOL% (35.7-47.0); Hemoglobin 8.7 GM/DL (12.0-16.0); Immature Granulocytes % 0.9 %; Lymphocytes # 1.3 10*3/uL (1.4-4.0); Lymphocytes % 11.8 % (21.3-54.2); Mean Corpuscular HGB Conc 30.6 GM/DL (32-36); Mean Corpuscular Volume 91.9 FL (87-102); Mean Platelet Volume 11.1 FL (9.6-12.0); Monocytes % 6.1 % (1.7-12.7); Platelet Count 418 T/CUMM (130-400); Red Blood Count 3.09 MC/CUMM (3.8-5.5); Red Cell Distribution Width 15.7 % (9.3-17.3); White Blood Count 11.4 T/CUMM (4-12)
[2021-05-03 07:01] LABS: Band Neutrophils 1 % (0-10); Hypochromasia 1+; Lymphocytes 7 % (20-55); Microcytosis 1+; Platelet Estimate Adequate; Segmented Neutrophils 84 % (50-85); Total Cells Counted 100
[2021-05-03] MEDS: ALBUTEROL/IPRATROPIUM 3 ML NEB RESP TX SCH ×3 (07:02→18:20)
[2021-05-03 07:07] LABS: Calcium 8.5 MG/DL (8.5-10.1); Osmolality,Calculated 277.1 MOS/KG (273-304); Potassium 3.3 MMOL/L (3.5-5.1)
[2021-05-03] MEDS: PANTOPRAZOLE 40 MG TABLET PO SCH (08:42)
[2021-05-03] MEDS: SERTRALINE 100 MG TABLET PO SCH ×2 (08:42→22:03)
[2021-05-03] MEDS: NICOTINE 21 MG/24 HR PATCH TRANSDERM SCH (08:42)
[2021-05-03] MEDS ORDERED: POTASSIUM CHLORIDE 20 MEQ TABLET PO ONE (09:30)
[2021-05-03] MEDS: HYDROmorphone 2 MG/1 ML VIAL IV PRN ×3 (10:08→22:00)
[2021-05-03] MEDS: FLUCONAZOLE 100 MG TABLET PO SCH (12:00)
[2021-05-03] MEDS: VANCOMYCIN INJ 1,000 MG in SODIUM CHLORIDE 0.9% 250 ML IV SCH (12:01)
[2021-05-03] MEDS: SODIUM HYPOCHLORITE 0.25% IRRIG 473 ML BOTTLE TOP SCH (15:12)
[2021-05-03] MEDS: ENOXAPARIN 40 MG/0.4 ML SYRINGE SUBCUT SCH (22:04)
[2021-05-03] MEDS: ATORVASTATIN 20 MG TABLET PO SCH (22:04)
[2021-05-04] MEDS: ALBUTEROL/IPRATROPIUM 3 ML NEB RESP TX SCH ×4 (00:21→18:10)
[2021-05-04] MEDS: VANCOMYCIN INJ 1,000 MG in SODIUM CHLORIDE 0.9% 250 ML IV SCH ×2 (02:12→12:08)
[2021-05-04] MEDS: SODIUM CHLORIDE 0.9% 1,000 ML IV SCH ×4 (03:22→22:30)
[2021-05-04] MEDS: PIPERACILLIN/TAZOBACTAM 3,375 MG in SODIUM CHLORIDE 0.9% 100 ML IV SCH ×3 (05:33→22:30)
[2021-05-04 05:34] LABS: Basophils % 0.2 % (0.0-0.8); Hematocrit 25.9 VOL% (35.7-47.0); Hemoglobin 8.1 GM/DL (12.0-16.0); Immature Granulocytes % 1.6 %; Immature Granulocytes Absolute 0.16 #; Lymphocytes # 1.1 10*3/uL (1.4-4.0); Lymphocytes % 10.9 % (21.3-54.2); Mean Corpuscular HGB Conc 31.3 GM/DL (32-36); Mean Corpuscular Volume 93.5 FL (87-102); Mean Platelet Volume 10.7 FL (9.6-12.0); Monocytes % 7.2 % (1.7-12.7); Neutrophils % 80.1 % (38.7-73.9); Platelet Count 404 T/CUMM (130-400); Red Blood Count 2.77 MC/CUMM (3.8-5.5); White Blood Count 10.2 T/CUMM (4-12)
[2021-05-04 05:57] LABS: Calcium 8.1 MG/DL (8.5-10.1); Osmolality,Calculated 280.7 MOS/KG (273-304); Potassium 4.4 MMOL/L (3.5-5.1)
[2021-05-04] MEDS: LEVOTHYROXINE 100 MCG TABLET PO SCH (05:59)
[2021-05-04 06:02] LABS: Hypochromasia 1+; Lymphocytes 12 % (20-55); Microcytosis 1+; Platelet Estimate Adequate; Segmented Neutrophils 86 % (50-85); Total Cells Counted 100
[2021-05-04] MEDS: HYDROmorphone 2 MG/1 ML VIAL IV PRN ×7 (06:31→19:15)
[2021-05-04] MEDS ORDERED: ETOMIDATE 40 MG/20 ML VIAL IV ONE (09:19)
[2021-05-04] MEDS ORDERED: SEVOFLURANE 1 UNIT/15 MINUTE INH ONE (09:19)
[2021-05-04] MEDS ORDERED: LIDOCAINE 2% 5 ML VIAL ONE (09:19)
[2021-05-04] MEDS ORDERED: fentaNYL 100 MCG/2 ML VIAL ONE (09:19)
[2021-05-04] MEDS ORDERED: propofoL 200 MG/20 ML VIAL IV ONE (09:19)
[2021-05-04] MEDS ORDERED: ONDANSETRON 4 MG/2 ML VIAL ONE (09:56)
[2021-05-04] MEDS ORDERED: PHENYLEPHRINE 1 MG/10 ML SYRINGE IV ONE (09:56)
[2021-05-04] MEDS ORDERED: DEXAMETHASONE 4 MG/1 ML VIAL ONE (09:56)
[2021-05-04] MEDS: ONDANSETRON 4 MG/2 ML VIAL IV PRN ×2 (10:17→19:15)
[2021-05-04] MEDS ORDERED: ONDANSETRON 4 MG/2 ML VIAL IV PRN (10:20)
[2021-05-04] MEDS: INSULIN REGULAR 100 UNIT/ML SUBCUT SCH ×4 (10:39→21:42)
[2021-05-04] MEDS: DOCUSATE SODIUM 100 MG CAPSULE PO SCH ×2 (10:39→22:30)
[2021-05-04] MEDS: NICOTINE 21 MG/24 HR PATCH TRANSDERM SCH (10:40)
[2021-05-04] MEDS: levETIRAcetam 500 MG TABLET PO SCH (10:40)
[2021-05-04] MEDS: FLUCONAZOLE 100 MG TABLET PO SCH (10:40)
[2021-05-04] MEDS: SODIUM HYPOCHLORITE 0.25% IRRIG 473 ML BOTTLE TOP SCH (10:40)
[2021-05-04] MEDS: PANTOPRAZOLE 40 MG TABLET PO SCH (10:40)
[2021-05-04] MEDS: SERTRALINE 100 MG TABLET PO SCH ×2 (10:41→22:31)
[2021-05-04] MEDS: methylPREDNISolone SOD SUC 40 MG/1 ML VIAL IV SCH ×2 (10:41→22:30)
[2021-05-04] MEDS: ENOXAPARIN 40 MG/0.4 ML SYRINGE SUBCUT SCH (22:30)
[2021-05-04] MEDS: ATORVASTATIN 20 MG TABLET PO SCH (22:30)
[2021-05-04] MEDS: ZALEPLON 5 MG CAPSULE PO SCH (22:31)
[2021-05-05] MEDS: levETIRAcetam 500 MG TABLET PO SCH ×3 (00:54→21:30)
[2021-05-05] MEDS: HYDROmorphone 2 MG/1 ML VIAL IV PRN ×4 (00:54→23:02)
[2021-05-05] MEDS: ONDANSETRON 4 MG/2 ML VIAL IV PRN ×2 (00:55→06:17)
[2021-05-05] MEDS: ALBUTEROL/IPRATROPIUM 3 ML NEB RESP TX SCH ×4 (01:20→20:00)
[2021-05-05] MEDS: VANCOMYCIN INJ 1,000 MG in SODIUM CHLORIDE 0.9% 250 ML IV SCH ×2 (02:28→17:31)
[2021-05-05 06:00] LABS: Basophils % 0.2 % (0.0-0.8); Hematocrit 27.3 VOL% (35.7-47.0); Hemoglobin 8.1 GM/DL (12.0-16.0); Immature Granulocytes % 2.2 %; Immature Granulocytes Absolute 0.28 #; Lymphocytes # 2.5 10*3/uL (1.4-4.0); Lymphocytes % 19.8 % (21.3-54.2); Mean Corpuscular HGB Conc 29.7 GM/DL (32-36); Mean Corpuscular Volume 95.1 FL (87-102); Mean Platelet Volume 10.6 FL (9.6-12.0); NRBC # 0.02 10*3/uL; Neutrophils % 69.8 % (38.7-73.9); Platelet Count 452 T/CUMM (130-400); Red Blood Count 2.87 MC/CUMM (3.8-5.5); White Blood Count 12.5 T/CUMM (4-12)
[2021-05-05 06:17] LABS: Calcium 8.4 MG/DL (8.5-10.1); Osmolality,Calculated 281.3 MOS/KG (273-304); Potassium 3.6 MMOL/L (3.5-5.1)
[2021-05-05 06:28] LABS: Anisocytosis 1+; Band Neutrophils 16 % (0-10); Lymphocytes 20 % (20-55); Macrocytosis 1+; Metamyelocytes 1 %; Platelet Estimate Normal; Segmented Neutrophils 55 % (50-85); Tear Drop Cells Few; Total Cells Counted 100
[2021-05-05] MEDS ORDERED: MAGNESIUM SULF RIDER 2 GM/50 ML PREMIX IV ONE (10:00)
[2021-05-05] MEDS: SODIUM HYPOCHLORITE 0.25% IRRIG 473 ML BOTTLE TOP SCH (10:27)
[2021-05-05] MEDS: SERTRALINE 100 MG TABLET PO SCH ×2 (10:35→21:39)
[2021-05-05] MEDS: FLUCONAZOLE 100 MG TABLET PO SCH (10:35)
[2021-05-05] MEDS: DOCUSATE SODIUM 100 MG CAPSULE PO SCH ×3 (10:35→21:30)
[2021-05-05] MEDS: PANTOPRAZOLE 40 MG TABLET PO SCH (10:35)
[2021-05-05] MEDS: LEVOTHYROXINE 100 MCG TABLET PO SCH (10:35)
[2021-05-05] MEDS: methylPREDNISolone SOD SUC 40 MG/1 ML VIAL IV SCH ×2 (10:36→21:30)
[2021-05-05] MEDS: SODIUM CHLORIDE 0.9% 1,000 ML IV SCH ×3 (12:35→21:35)
[2021-05-05] MEDS: PIPERACILLIN/TAZOBACTAM 3,375 MG in SODIUM CHLORIDE 0.9% 100 ML IV SCH ×2 (17:15→17:26)
[2021-05-05] MEDS: INSULIN REGULAR 100 UNIT/ML SUBCUT SCH ×2 (17:27→21:31)
[2021-05-05] MEDS: NICOTINE 21 MG/24 HR PATCH TRANSDERM SCH (17:28)
[2021-05-05] MEDS: ZALEPLON 5 MG CAPSULE PO SCH (21:30)
[2021-05-05] MEDS: ATORVASTATIN 20 MG TABLET PO SCH (21:30)
[2021-05-05] MEDS: ENOXAPARIN 40 MG/0.4 ML SYRINGE SUBCUT SCH (21:31)
[2021-05-06] MEDS: PIPERACILLIN/TAZOBACTAM 3,375 MG in SODIUM CHLORIDE 0.9% 100 ML IV SCH ×3 (00:37→18:14)
[2021-05-06] MEDS: ALBUTEROL/IPRATROPIUM 3 ML NEB RESP TX SCH ×4 (01:08→19:09)
[2021-05-06] MEDS: HYDROmorphone 2 MG/1 ML VIAL IV PRN ×4 (03:00→19:40)
[2021-05-06 05:20] LABS: Basophils % 0.1 % (0.0-0.8); Hematocrit 27.8 VOL% (35.7-47.0); Hemoglobin 8.3 GM/DL (12.0-16.0); Immature Granulocytes Absolute 0.41 #; Lymphocytes # 1.4 10*3/uL (1.4-4.0); Lymphocytes % 6.6 % (21.3-54.2); Mean Corpuscular HGB Conc 29.9 GM/DL (32-36); Mean Corpuscular Volume 94.2 FL (87-102); Mean Platelet Volume 10.3 FL (9.6-12.0); Monocytes % 4.6 % (1.7-12.7); Neutrophils % 86.7 % (38.7-73.9); Platelet Count 469 T/CUMM (130-400); Red Blood Count 2.95 MC/CUMM (3.8-5.5); Red Cell Distribution Width 15.9 % (9.3-17.3); White Blood Count 20.9 T/CUMM (4-12)
[2021-05-06 05:47] LABS: Calcium 8.3 MG/DL (8.5-10.1); Osmolality,Calculated 280.5 MOS/KG (273-304); Potassium 3.8 MMOL/L (3.5-5.1)
[2021-05-06] MEDS: LEVOTHYROXINE 100 MCG TABLET PO SCH (06:05)
[2021-05-06 06:12] LABS: Hypochromasia 1+
[2021-05-06 06:13] LABS: Microcytosis 1+; Platelet Estimate Increased
[2021-05-06 08:37] LABS: Band Neutrophils 5 % (0-10); Lymphocytes 6 % (20-55); Myelocytes 1 %; Segmented Neutrophils 80 % (50-85); Total Cells Counted 100
[2021-05-06] MEDS: SODIUM HYPOCHLORITE 0.25% IRRIG 473 ML BOTTLE TOP SCH (10:33)
[2021-05-06] MEDS: DOCUSATE SODIUM 100 MG CAPSULE PO SCH ×2 (10:33→20:52)
[2021-05-06] MEDS: PANTOPRAZOLE 40 MG TABLET PO SCH (10:33)
[2021-05-06] MEDS: MULTIVITAMIN (CENTRUM) TABLET PO SCH (10:33)
[2021-05-06] MEDS: FLUCONAZOLE 100 MG TABLET PO SCH (10:33)
[2021-05-06] MEDS: methylPREDNISolone SOD SUC 40 MG/1 ML VIAL IV SCH (10:36)
[2021-05-06] MEDS: SODIUM CHLORIDE 0.9% 1,000 ML IV SCH ×2 (10:39→18:39)
[2021-05-06] MEDS: NICOTINE 21 MG/24 HR PATCH TRANSDERM SCH (11:00)
[2021-05-06] MEDS: SERTRALINE 100 MG TABLET PO SCH (11:04)
[2021-05-06] MEDS: INSULIN REGULAR 100 UNIT/ML SUBCUT SCH ×4 (11:13→22:00)
[2021-05-06] MEDS: levETIRAcetam 500 MG TABLET PO SCH ×2 (13:06→20:52)
[2021-05-06] MEDS: VANCOMYCIN INJ 1,000 MG in SODIUM CHLORIDE 0.9% 250 ML IV SCH ×2 (15:41→16:46)
[2021-05-06] MEDS: ZALEPLON 5 MG CAPSULE PO SCH (20:52)
[2021-05-06] MEDS: ATORVASTATIN 20 MG TABLET PO SCH (20:52)
[2021-05-06] MEDS: ENOXAPARIN 40 MG/0.4 ML SYRINGE SUBCUT SCH (20:53)
[2021-05-07] MEDS: ALBUTEROL/IPRATROPIUM 3 ML NEB RESP TX SCH ×4 (00:20→19:37)
[2021-05-07] MEDS: PIPERACILLIN/TAZOBACTAM 3,375 MG in SODIUM CHLORIDE 0.9% 100 ML IV SCH ×3 (01:36→16:42)
[2021-05-07] MEDS: HYDROmorphone 2 MG/1 ML VIAL IV PRN ×5 (03:53→21:03)
[2021-05-07] MEDS: LEVOTHYROXINE 100 MCG TABLET PO SCH (05:44)
[2021-05-07 06:25] LABS: Basophils % 0.1 % (0.0-0.8); Hematocrit 27.3 VOL% (35.7-47.0); Hemoglobin 8.2 GM/DL (12.0-16.0); Immature Granulocytes % 2.4 %; Immature Granulocytes Absolute 0.49 #; Mean Corpuscular Volume 94.1 FL (87-102); Mean Platelet Volume 10.2 FL (9.6-12.0); Monocytes % 5.6 % (1.7-12.7); NRBC # 0.06 10*3/uL; Neutrophils % 81.9 % (38.7-73.9); Platelet Count 514 T/CUMM (130-400); Red Cell Distribution Width 16.1 % (9.3-17.3)
[2021-05-07 06:41] LABS: Calcium 8.6 MG/DL (8.5-10.1); Osmolality,Calculated 276.5 MOS/KG (273-304); Potassium 3.2 MMOL/L (3.5-5.1)
[2021-05-07 06:49] LABS: Hypochromasia 1+; Lymphocytes 5 % (20-55); Microcytosis 1+; Platelet Estimate Adequate; Segmented Neutrophils 90 % (50-85); Total Cells Counted 100
[2021-05-07] MEDS: predniSONE 20 MG TABLET PO SCH (08:38)
[2021-05-07] MEDS: DOCUSATE SODIUM 100 MG CAPSULE PO SCH ×2 (08:38→21:03)
[2021-05-07] MEDS: PANTOPRAZOLE 40 MG TABLET PO SCH (08:38)
[2021-05-07] MEDS: SERTRALINE 100 MG TABLET PO SCH (08:38)
[2021-05-07] MEDS: FLUCONAZOLE 100 MG TABLET PO SCH (08:39)
[2021-05-07] MEDS: levETIRAcetam 500 MG TABLET PO SCH ×2 (08:40→21:03)
[2021-05-07] MEDS: MULTIVITAMIN (CENTRUM) TABLET PO SCH (08:40)
[2021-05-07] MEDS: NICOTINE 21 MG/24 HR PATCH TRANSDERM SCH (10:35)
[2021-05-07] MEDS: INSULIN REGULAR 100 UNIT/ML SUBCUT SCH ×4 (10:35→22:36)
[2021-05-07] MEDS: VANCOMYCIN INJ 1,000 MG in SODIUM CHLORIDE 0.9% 250 ML IV SCH (13:05)
[2021-05-07] MEDS: SODIUM HYPOCHLORITE 0.25% IRRIG 473 ML BOTTLE TOP SCH (13:30)
[2021-05-07] MEDS: SODIUM CHLORIDE 0.9% 1,000 ML IV SCH (13:57)
[2021-05-07] MEDS: ENOXAPARIN 40 MG/0.4 ML SYRINGE SUBCUT SCH (21:03)
[2021-05-07] MEDS: ATORVASTATIN 20 MG TABLET PO SCH (21:03)
[2021-05-07] MEDS: ZALEPLON 5 MG CAPSULE PO SCH (21:04)
[2021-05-08] MEDS: HYDROmorphone 2 MG/1 ML VIAL IV PRN ×5 (00:30→21:28)
[2021-05-08] MEDS: PIPERACILLIN/TAZOBACTAM 3,375 MG in SODIUM CHLORIDE 0.9% 100 ML IV SCH ×2 (00:30→09:28)
[2021-05-08] MEDS: ALBUTEROL/IPRATROPIUM 3 ML NEB RESP TX SCH ×4 (00:32→19:49)
[2021-05-08] MEDS: SODIUM CHLORIDE 0.9% 1,000 ML IV SCH ×2 (02:28→10:30)
[2021-05-08] MEDS: LEVOTHYROXINE 100 MCG TABLET PO SCH (05:48)
[2021-05-08 05:56] LABS: Basophils % 0.2 % (0.0-0.8); Hemoglobin 7.8 GM/DL (12.0-16.0); Immature Granulocytes % 2.5 %; Immature Granulocytes Absolute 0.45 #; Lymphocytes % 11.3 % (21.3-54.2); Mean Corpuscular Volume 94.9 FL (87-102); NRBC # 0.04 10*3/uL; Platelet Count 469 T/CUMM (130-400); Red Blood Count 2.74 MC/CUMM (3.8-5.5); Red Cell Distribution Width 16.4 % (9.3-17.3); White Blood Count 17.9 T/CUMM (4-12)
[2021-05-08 06:14] LABS: Calcium 8.3 MG/DL (8.5-10.1); Osmolality,Calculated 278.4 MOS/KG (273-304)
[2021-05-08 06:18] LABS: Hypochromasia 1+; Lymphocytes 6 % (20-55); Microcytosis 1+; Platelet Estimate Adequate; Segmented Neutrophils 88 % (50-85); Total Cells Counted 100
[2021-05-08] MEDS: INSULIN REGULAR 100 UNIT/ML SUBCUT SCH ×4 (09:19→21:26)
[2021-05-08] MEDS: MULTIVITAMIN (CENTRUM) TABLET PO SCH (09:30)
[2021-05-08] MEDS: PANTOPRAZOLE 40 MG TABLET PO SCH (09:30)
[2021-05-08] MEDS: predniSONE 20 MG TABLET PO SCH (09:30)
[2021-05-08] MEDS: levETIRAcetam 500 MG TABLET PO SCH ×2 (09:31→21:27)
[2021-05-08] MEDS: FLUCONAZOLE 100 MG TABLET PO SCH (09:31)
[2021-05-08] MEDS: SERTRALINE 100 MG TABLET PO SCH (09:31)
[2021-05-08] MEDS: DOCUSATE SODIUM 100 MG CAPSULE PO SCH (09:31)
[2021-05-08] MEDS: NICOTINE 21 MG/24 HR PATCH TRANSDERM SCH (09:32)
[2021-05-08] MEDS: SODIUM HYPOCHLORITE 0.25% IRRIG 473 ML BOTTLE TOP SCH (10:30)
[2021-05-08] MEDS: ONDANSETRON 4 MG/2 ML VIAL IV PRN (12:18)
[2021-05-08] MEDS: ALPRAZolam 0.25 MG TABLET PO PRN (12:46)
[2021-05-08 14:49] LABS: Bacteria,Urine Occasional /HPF (Few); Bilirubin,Urine Negative (Negative); Blood, Urine Negative (Negative); Glucose,Urine (UA) Negative (Negative); Hyaline Casts,Urine 4 /LPF (0-3); Ketones,Urine Negative (Negative); Mucus,Urine Occasional /LPF (Occasional); Nitrite,Urine Negative (Negative); Protein,Urine Negative; RBC,Urine 4 /HPF (0-4); Urine Appearance CLEAR (Clear); Urine Color Yellow (Yellow); Urine Specific Gravity 1.019 (1.001-1.035); Urine Urobilinogen < 2.0 EU/DL (0.2-1.0)
[2021-05-08] MEDS: ATORVASTATIN 20 MG TABLET PO SCH (21:27)
[2021-05-08] MEDS: ENOXAPARIN 40 MG/0.4 ML SYRINGE SUBCUT SCH (21:27)
[2021-05-08] MEDS: POTASSIUM BICARB EFFERVESCENT 25 MEQ TAB.EFF PO SCH (21:27)
[2021-05-08] MEDS: ZALEPLON 5 MG CAPSULE PO SCH (21:27)
[2021-05-09] MEDS: ALBUTEROL/IPRATROPIUM 3 ML NEB RESP TX SCH ×4 (01:04→20:11)
[2021-05-09] MEDS: HYDROmorphone 2 MG/1 ML VIAL IV PRN ×4 (01:33→21:52)
[2021-05-09] MEDS: ONDANSETRON 4 MG/2 ML VIAL IV PRN (01:36)
[2021-05-09] MEDS: ALPRAZolam 0.25 MG TABLET PO PRN ×2 (02:40→13:29)
[2021-05-09] MEDS: SODIUM CHLORIDE 0.9% 1,000 ML IV SCH ×3 (02:50→21:46)
[2021-05-09] MEDS ORDERED: LORazepam 2 MG/1 ML VIAL IV ONE (04:36)
[2021-05-09] MEDS: LEVOTHYROXINE 100 MCG TABLET PO SCH (05:48)
[2021-05-09] MEDS: INSULIN REGULAR 100 UNIT/ML SUBCUT SCH ×4 (08:27→21:19)
[2021-05-09] MEDS: predniSONE 20 MG TABLET PO SCH (08:27)
[2021-05-09] MEDS: MAGNESIUM CHLORIDE 64 MG TABLET PO SCH (08:27)
[2021-05-09] MEDS: PANTOPRAZOLE 40 MG TABLET PO SCH (08:27)
[2021-05-09] MEDS: MULTIVITAMIN (CENTRUM) TABLET PO SCH (08:27)
[2021-05-09] MEDS: SERTRALINE 100 MG TABLET PO SCH (08:27)
[2021-05-09] MEDS: FLUCONAZOLE 100 MG TABLET PO SCH (08:27)
[2021-05-09] MEDS: levETIRAcetam 500 MG TABLET PO SCH ×2 (08:27→21:18)
[2021-05-09] MEDS: NICOTINE 21 MG/24 HR PATCH TRANSDERM SCH (08:28)
[2021-05-09] MEDS: SODIUM HYPOCHLORITE 0.25% IRRIG 473 ML BOTTLE TOP SCH (08:28)
[2021-05-09] MEDS: POTASSIUM BICARB EFFERVESCENT 25 MEQ TAB.EFF PO SCH ×2 (10:48→21:18)
[2021-05-09] MEDS ORDERED: FUROSEMIDE 40 MG/4 ML VIAL IV ONE (13:02)
[2021-05-09 13:53] LABS: Basophils % 0.1 % (0.0-0.8); Hematocrit 26.1 VOL% (35.7-47.0); Hemoglobin 8.1 GM/DL (12.0-16.0); Immature Granulocytes % 1.5 %; Immature Granulocytes Absolute 0.36 #; Lymphocytes # 1.2 10*3/uL (1.4-4.0); Lymphocytes % 5.1 % (21.3-54.2); Mean Corpuscular Volume 91.9 FL (87-102); Mean Platelet Volume 9.8 FL (9.6-12.0); Monocytes % 2.4 % (1.7-12.7); NRBC # 0.05 10*3/uL; Neutrophils % 90.9 % (38.7-73.9); Platelet Count 485 T/CUMM (130-400); Red Blood Count 2.84 MC/CUMM (3.8-5.5); Red Cell Distribution Width 16.4 % (9.3-17.3); White Blood Count 23.8 T/CUMM (4-12)
[2021-05-09 14:07] LABS: Alanine Aminotransferase 26 U/L (13-56); Albumin 1.8 G/DL (3.4-5.0); Alkaline Phosphatase 107 U/L (45-117); Aspartate Amino Transferase 33 U/L (0-37); Bilirubin,Total < 0.39 MG/DL (0.20-1.00); Blood Urea Nitrogen 12 MG/DL (7-18); Calcium 7.9 MG/DL (8.5-10.1); Carbon Dioxide 25 MMOL/L (21-32); Estimated Glom Filtration Rate 88 ML/MIN; Glucose 144 MG/DL (74-106); Osmolality,Calculated 275.8 MOS/KG (273-304); Potassium 3.7 MMOL/L (3.5-5.1); Sodium 137 MMOL/L (136-145); Total Protein 6.3 G/DL (6.4-8.2)
[2021-05-09] MEDS ORDERED: ZIPRASIDONE 20 MG/1 ML VIAL IM ONE (15:23)
[2021-05-09] MEDS: POTASSIUM CHLORIDE 20 MEQ TABLET PO SCH (15:40)
[2021-05-09 18:05] LABS: Lymphocytes 2 % (20-55); Segmented Neutrophils 96 % (50-85); Total Cells Counted 100
[2021-05-09 18:06] LABS: Hypochromasia 1+; Platelet Estimate Increased; Polychromasia Few
[2021-05-09] MEDS: ZALEPLON 5 MG CAPSULE PO SCH (21:18)
[2021-05-09] MEDS: ATORVASTATIN 20 MG TABLET PO SCH (21:18)
[2021-05-09] MEDS: ENOXAPARIN 40 MG/0.4 ML SYRINGE SUBCUT SCH (21:18)
[2021-05-10] MEDS: ALBUTEROL/IPRATROPIUM 3 ML NEB RESP TX SCH ×4 (01:02→20:15)
[2021-05-10] MEDS: HYDROmorphone 2 MG/1 ML VIAL IV PRN ×5 (02:21→23:10)
[2021-05-10] MEDS: LEVOTHYROXINE 100 MCG TABLET PO SCH (05:49)
[2021-05-10 06:18] LABS: Basophils % 0.1 % (0.0-0.8); Hematocrit 22.8 VOL% (35.7-47.0); Hemoglobin 7.2 GM/DL (12.0-16.0); Immature Granulocytes % 0.8 %; Immature Granulocytes Absolute 0.18 #; Lymphocytes # 1.7 10*3/uL (1.4-4.0); Lymphocytes % 7.9 % (21.3-54.2); Mean Corpuscular HGB Conc 31.6 GM/DL (32-36); Mean Corpuscular Volume 91.9 FL (87-102); Mean Platelet Volume 9.9 FL (9.6-12.0); Monocytes % 2.6 % (1.7-12.7); NRBC # 0.03 10*3/uL; Neutrophils % 88.6 % (38.7-73.9); Platelet Count 428 T/CUMM (130-400); Red Blood Count 2.48 MC/CUMM (3.8-5.5); Red Cell Distribution Width 16.3 % (9.3-17.3); White Blood Count 21.3 T/CUMM (4-12)
[2021-05-10 06:39] LABS: Calcium 8.5 MG/DL (8.5-10.1); Osmolality,Calculated 278.3 MOS/KG (273-304); Potassium 3.8 MMOL/L (3.5-5.1)
[2021-05-10 06:46] LABS: Hypochromasia 1+; Lymphocytes 6 % (20-55); Microcytosis 1+; Platelet Estimate Adequate; Segmented Neutrophils 90 % (50-85); Total Cells Counted 100
[2021-05-10 08:10] LABS: Bilirubin,Urine Negative (Negative); Blood, Urine Large mg/dL (Negative); Glucose,Urine (UA) Negative (Negative); Hyaline Casts,Urine 10 /LPF (0-3); Ketones,Urine Negative (Negative); Mucus,Urine Few /LPF (Occasional); Nitrite,Urine Negative (Negative); Protein,Urine 30 MG/DL; RBC,Urine 208 /HPF (0-4); Squamous Epithelial Cell,Urine Occasional /HPF (0-10); Urine Appearance CLOUDY (Clear); Urine Color Yellow (Yellow); Urine Specific Gravity 1.014 (1.001-1.035); Urine Urobilinogen < 2.0 EU/DL (0.2-1.0)
[2021-05-10] MEDS: FUROSEMIDE 40 MG/4 ML VIAL IV SCH (09:15)
[2021-05-10] MEDS: MULTIVITAMIN (CENTRUM) TABLET PO SCH (09:16)
[2021-05-10] MEDS: MAGNESIUM CHLORIDE 64 MG TABLET PO SCH (09:16)
[2021-05-10] MEDS: ALPRAZolam 0.25 MG TABLET PO PRN (09:16)
[2021-05-10] MEDS: POTASSIUM CHLORIDE 20 MEQ TABLET PO SCH (09:16)
[2021-05-10] MEDS: predniSONE 20 MG TABLET PO SCH (09:17)
[2021-05-10] MEDS: PANTOPRAZOLE 40 MG TABLET PO SCH (09:17)
[2021-05-10] MEDS: NICOTINE 21 MG/24 HR PATCH TRANSDERM SCH (09:17)
[2021-05-10] MEDS: SERTRALINE 100 MG TABLET PO SCH (09:17)
[2021-05-10] MEDS: FLUCONAZOLE 100 MG TABLET PO SCH (09:17)
[2021-05-10] MEDS: levETIRAcetam 500 MG TABLET PO SCH ×2 (09:18→21:29)
[2021-05-10] MEDS: POTASSIUM BICARB EFFERVESCENT 25 MEQ TAB.EFF PO SCH ×2 (09:18→21:29)
[2021-05-10] MEDS: INSULIN REGULAR 100 UNIT/ML SUBCUT SCH ×4 (09:23→20:22)
[2021-05-10] MEDS: SODIUM HYPOCHLORITE 0.25% IRRIG 473 ML BOTTLE TOP SCH (11:32)
[2021-05-10] MEDS: ENOXAPARIN 40 MG/0.4 ML SYRINGE SUBCUT SCH (21:29)
[2021-05-10] MEDS: QUEtiapine 25 MG TABLET PO SCH (21:29)
[2021-05-10] MEDS: ATORVASTATIN 20 MG TABLET PO SCH (21:29)
[2021-05-11] MEDS: ALBUTEROL/IPRATROPIUM 3 ML NEB RESP TX SCH ×4 (01:50→20:07)
[2021-05-11 05:58] LABS: Basophils % 0.1 % (0.0-0.8); Hematocrit 27.9 VOL% (35.7-47.0); Hemoglobin 8.5 GM/DL (12.0-16.0); Immature Granulocytes Absolute 0.32 #; Lymphocytes % 6.6 % (21.3-54.2); Mean Corpuscular HGB Conc 30.5 GM/DL (32-36); Mean Corpuscular Volume 94.3 FL (87-102); Mean Platelet Volume 10.2 FL (9.6-12.0); Monocytes % 2.4 % (1.7-12.7); NRBC # 0.04 10*3/uL; Neutrophils % 89.9 % (38.7-73.9); Platelet Count 403 T/CUMM (130-400); Red Blood Count 2.96 MC/CUMM (3.8-5.5); Red Cell Distribution Width 16.7 % (9.3-17.3); White Blood Count 30.8 T/CUMM (4-12)
[2021-05-11] MEDS: LEVOTHYROXINE 100 MCG TABLET PO SCH (06:07)
[2021-05-11] MEDS: HYDROmorphone 2 MG/1 ML VIAL IV PRN ×4 (06:12→20:44)
[2021-05-11 06:21] LABS: Calcium 8.6 MG/DL (8.5-10.1); Osmolality,Calculated 272.7 MOS/KG (273-304); Potassium 3.9 MMOL/L (3.5-5.1)
[2021-05-11 06:29] LABS: Band Neutrophils 6 % (0-10); Hypochromasia Slight; Lymphocytes 5 % (20-55); Platelet Estimate Increased; Segmented Neutrophils 86 % (50-85); Total Cells Counted 100
[2021-05-11] MEDS: PANTOPRAZOLE 40 MG TABLET PO SCH (08:53)
[2021-05-11] MEDS: levETIRAcetam 500 MG TABLET PO SCH ×2 (08:54→20:43)
[2021-05-11] MEDS: SERTRALINE 100 MG TABLET PO SCH (08:54)
[2021-05-11] MEDS: predniSONE 20 MG TABLET PO SCH (08:54)
[2021-05-11] MEDS: MULTIVITAMIN (CENTRUM) TABLET PO SCH (08:54)
[2021-05-11] MEDS: MAGNESIUM CHLORIDE 64 MG TABLET PO SCH ×3 (08:54→20:43)
[2021-05-11] MEDS: ALPRAZolam 0.25 MG TABLET PO PRN ×2 (08:55→22:49)
[2021-05-11] MEDS: POTASSIUM CHLORIDE 20 MEQ TABLET PO SCH (08:55)
[2021-05-11] MEDS: FUROSEMIDE 40 MG/4 ML VIAL IV SCH (08:55)
[2021-05-11] MEDS: INSULIN REGULAR 100 UNIT/ML SUBCUT SCH ×4 (08:59→20:59)
[2021-05-11] MEDS: POTASSIUM BICARB EFFERVESCENT 25 MEQ TAB.EFF PO SCH ×2 (09:00→20:49)
[2021-05-11] MEDS: NICOTINE 21 MG/24 HR PATCH TRANSDERM SCH (09:02)
[2021-05-11] MEDS: CEFEPIME 1,000 MG in SODIUM CHLORIDE 0.9% 100 ML IV SCH ×2 (16:24→21:03)
[2021-05-11] MEDS: SODIUM HYPOCHLORITE 0.25% IRRIG 473 ML BOTTLE TOP SCH (17:32)
[2021-05-11] MEDS: QUEtiapine 25 MG TABLET PO SCH (20:43)
[2021-05-11] MEDS: ATORVASTATIN 20 MG TABLET PO SCH (20:43)
[2021-05-11] MEDS: methylPREDNISolone SOD SUC 40 MG/1 ML VIAL IV SCH (20:43)
[2021-05-11] MEDS: ENOXAPARIN 40 MG/0.4 ML SYRINGE SUBCUT SCH (20:48)
[2021-05-12] MEDS: HYDROmorphone 2 MG/1 ML VIAL IV PRN ×3 (00:32→17:57)
[2021-05-12] MEDS: ALBUTEROL/IPRATROPIUM 3 ML NEB RESP TX SCH ×4 (00:41→20:01)
[2021-05-12] MEDS: ALPRAZolam 0.25 MG TABLET PO PRN ×2 (02:13→17:56)
[2021-05-12] MEDS: CEFEPIME 1,000 MG in SODIUM CHLORIDE 0.9% 100 ML IV SCH ×5 (03:17→22:44)
[2021-05-12] MEDS: LEVOTHYROXINE 100 MCG TABLET PO SCH (05:44)
[2021-05-12 06:14] LABS: Basophils % 0.2 % (0.0-0.8); Hemoglobin 7.8 GM/DL (12.0-16.0); Immature Granulocytes % 1.4 %; Immature Granulocytes Absolute 0.25 #; Lymphocytes # 1.6 10*3/uL (1.4-4.0); Lymphocytes % 8.9 % (21.3-54.2); Mean Corpuscular Volume 93.9 FL (87-102); Mean Platelet Volume 10.3 FL (9.6-12.0); Monocytes % 2.9 % (1.7-12.7); NRBC # 0.05 10*3/uL; Neutrophils % 86.6 % (38.7-73.9); Platelet Count 329 T/CUMM (130-400); Red Blood Count 2.77 MC/CUMM (3.8-5.5); Red Cell Distribution Width 16.3 % (9.3-17.3); White Blood Count 18.1 T/CUMM (4-12)
[2021-05-12 06:29] LABS: Calcium 8.5 MG/DL (8.5-10.1); Osmolality,Calculated 278.7 MOS/KG (273-304)
[2021-05-12] MEDS: methylPREDNISolone SOD SUC 40 MG/1 ML VIAL IV SCH ×3 (08:45→22:44)
[2021-05-12] MEDS: MAGNESIUM CHLORIDE 64 MG TABLET PO SCH ×3 (08:46→21:31)
[2021-05-12] MEDS: POTASSIUM CHLORIDE 20 MEQ TABLET PO SCH (08:46)
[2021-05-12] MEDS: PANTOPRAZOLE 40 MG TABLET PO SCH (08:46)
[2021-05-12] MEDS: MULTIVITAMIN (CENTRUM) TABLET PO SCH (08:46)
[2021-05-12] MEDS: FUROSEMIDE 40 MG/4 ML VIAL IV SCH (08:46)
[2021-05-12] MEDS: levETIRAcetam 500 MG TABLET PO SCH ×2 (08:47→21:31)
[2021-05-12] MEDS: SERTRALINE 100 MG TABLET PO SCH (08:47)
[2021-05-12] MEDS: NICOTINE 21 MG/24 HR PATCH TRANSDERM SCH (08:47)
[2021-05-12] MEDS: INSULIN REGULAR 100 UNIT/ML SUBCUT SCH ×4 (10:50→21:33)
[2021-05-12] MEDS: SODIUM HYPOCHLORITE 0.25% IRRIG 473 ML BOTTLE TOP SCH (10:51)
[2021-05-12] MEDS: POTASSIUM BICARB EFFERVESCENT 25 MEQ TAB.EFF PO SCH ×2 (10:51→21:31)
[2021-05-12] MEDS: ATORVASTATIN 20 MG TABLET PO SCH (21:31)
[2021-05-12] MEDS: QUEtiapine 25 MG TABLET PO SCH (21:31)
[2021-05-12] MEDS: ENOXAPARIN 40 MG/0.4 ML SYRINGE SUBCUT SCH (21:33)
[2021-05-13] MEDS: ALBUTEROL/IPRATROPIUM 3 ML NEB RESP TX SCH ×4 (00:17→18:54)
[2021-05-13] MEDS: ALPRAZolam 0.25 MG TABLET PO PRN ×2 (00:48→21:11)
[2021-05-13] MEDS: CEFEPIME 1,000 MG in SODIUM CHLORIDE 0.9% 100 ML IV SCH ×4 (02:33→21:09)
[2021-05-13] MEDS: HYDROmorphone 2 MG/1 ML VIAL IV PRN ×2 (03:12→18:10)
[2021-05-13 05:37] LABS: Basophils % 0.2 % (0.0-0.8); Eosinophils # 0.1 10*3/uL (0.0-0.87); Eosinophils % 0.2 % (0.00-10.9); Hematocrit 30.6 VOL% (35.7-47.0); Hemoglobin 9.3 GM/DL (12.0-16.0); Immature Granulocytes % 2.8 %; Immature Granulocytes Absolute 0.73 #; Lymphocytes # 3.5 10*3/uL (1.4-4.0); Lymphocytes % 13.4 % (21.3-54.2); Mean Corpuscular HGB Conc 30.4 GM/DL (32-36); Mean Platelet Volume 10.1 FL (9.6-12.0); Monocytes % 3.3 % (1.7-12.7); NRBC # 0.15 10*3/uL; Neutrophils % 80.1 % (38.7-73.9); Platelet Count 326 T/CUMM (130-400); Red Blood Count 3.29 MC/CUMM (3.8-5.5); White Blood Count 26.1 T/CUMM (4-12)
[2021-05-13 06:01] LABS: Calcium 9.2 MG/DL (8.5-10.1); Osmolality,Calculated 273.1 MOS/KG (273-304); Potassium 4.9 MMOL/L (3.5-5.1)
[2021-05-13 06:05] LABS: Band Neutrophils 2 % (0-10); Lymphocytes 10 % (20-55); Platelet Estimate Normal; Segmented Neutrophils 86 % (50-85); Total Cells Counted 100
[2021-05-13] MEDS: LEVOTHYROXINE 100 MCG TABLET PO SCH (06:14)
[2021-05-13] MEDS ORDERED: MIDAZOLAM 2 MG/2 ML VIAL ONE (08:11)
[2021-05-13] MEDS ORDERED: propofoL 200 MG/20 ML VIAL IV ONE (08:11)
[2021-05-13] MEDS ORDERED: LIDOCAINE 2% 5 ML VIAL ONE (08:11)
[2021-05-13] MEDS ORDERED: ETOMIDATE 40 MG/20 ML VIAL IV ONE (08:12)
[2021-05-13] MEDS ORDERED: ONDANSETRON 4 MG/2 ML VIAL ONE (08:14)
[2021-05-13] MEDS ORDERED: KETOROLAC 30 MG/1 ML VIAL ONE (08:18)
[2021-05-13] MEDS ORDERED: ACETAMINOPHEN INJ 1,000 MG/100 ML VIAL IV ONE (08:18)
[2021-05-13] MEDS ORDERED: DEXAMETHASONE 4 MG/1 ML VIAL ONE (08:18)
[2021-05-13] MEDS: INSULIN REGULAR 100 UNIT/ML SUBCUT SCH ×4 (10:17→21:07)
[2021-05-13] MEDS: MULTIVITAMIN (CENTRUM) TABLET PO SCH (10:17)
[2021-05-13] MEDS: SODIUM HYPOCHLORITE 0.25% IRRIG 473 ML BOTTLE TOP SCH (10:17)
[2021-05-13] MEDS: SERTRALINE 100 MG TABLET PO SCH (10:18)
[2021-05-13] MEDS: PANTOPRAZOLE 40 MG TABLET PO SCH (10:18)
[2021-05-13] MEDS: NICOTINE 21 MG/24 HR PATCH TRANSDERM SCH (10:18)
[2021-05-13] MEDS: MAGNESIUM CHLORIDE 64 MG TABLET PO SCH ×3 (10:18→21:11)
[2021-05-13] MEDS: methylPREDNISolone SOD SUC 40 MG/1 ML VIAL IV SCH ×2 (10:18→21:08)
[2021-05-13] MEDS: POTASSIUM BICARB EFFERVESCENT 25 MEQ TAB.EFF PO SCH ×2 (10:18→21:12)
[2021-05-13] MEDS: levETIRAcetam 500 MG TABLET PO SCH ×2 (10:18→21:11)
[2021-05-13] MEDS: POTASSIUM CHLORIDE 20 MEQ TABLET PO SCH (10:18)
[2021-05-13] MEDS: ONDANSETRON 4 MG/2 ML VIAL IV PRN (21:04)
[2021-05-13] MEDS: ATORVASTATIN 20 MG TABLET PO SCH (21:11)
[2021-05-13] MEDS: ENOXAPARIN 40 MG/0.4 ML SYRINGE SUBCUT SCH (21:11)
[2021-05-13] MEDS: QUEtiapine 25 MG TABLET PO SCH (21:12)
[2021-05-14] MEDS: ALBUTEROL/IPRATROPIUM 3 ML NEB RESP TX SCH ×4 (00:48→19:02)
[2021-05-14] MEDS: ONDANSETRON 4 MG/2 ML VIAL IV PRN ×2 (01:27→07:52)
[2021-05-14] MEDS: HYDROmorphone 2 MG/1 ML VIAL IV PRN ×2 (01:32→08:29)
[2021-05-14] MEDS: CEFEPIME 1,000 MG in SODIUM CHLORIDE 0.9% 100 ML IV SCH ×2 (02:48→10:45)
[2021-05-14] MEDS: LEVOTHYROXINE 100 MCG TABLET PO SCH (06:49)
[2021-05-14] MEDS: INSULIN REGULAR 100 UNIT/ML SUBCUT SCH ×4 (08:33→21:44)
[2021-05-14 08:38] VITALS: BP 109/69
[2021-05-14 08:53] LABS: Basophils # 0.2 10*3/uL (0.0-0.2); Basophils % 0.3 % (0.0-0.8); Hematocrit 26.3 VOL% (35.7-47.0); Hemoglobin 8.2 GM/DL (12.0-16.0); Immature Granulocytes % 2.8 %; Lymphocytes # 3.6 10*3/uL (1.4-4.0); Lymphocytes % 6.7 % (21.3-54.2); Mean Corpuscular HGB Conc 31.2 GM/DL (32-36); Mean Corpuscular Volume 94.6 FL (87-102); Mean Platelet Volume 10.9 FL (9.6-12.0); Monocytes % 2.8 % (1.7-12.7); NRBC # 0.61 10*3/uL; Neutrophils % 87.4 % (38.7-73.9); Platelet Count 339 T/CUMM (130-400); Red Blood Count 2.78 MC/CUMM (3.8-5.5); Red Cell Distribution Width 16.8 % (9.3-17.3)
[2021-05-14 08:58] LABS: White Blood Count 53.5 T/CUMM (4-12)
[2021-05-14 09:03] LABS: Calcium 9.3 MG/DL (8.5-10.1); Osmolality,Calculated 280.4 MOS/KG (273-304)
[2021-05-14 09:06] LABS: Potassium 6.3 MMOL/L (3.5-5.1)
[2021-05-14 09:09] LABS: Band Neutrophils 2 % (0-10); Hypochromasia 1+; Lymphocytes 9 % (20-55); Microcytosis 1+; Platelet Estimate Adequate; Segmented Neutrophils 86 % (50-85); Total Cells Counted 100
[2021-05-14] MEDS ORDERED: CALCIUM GLUCONATE 1,000 MG in SODIUM CHLORIDE 0.9% 100 ML IV ONE (09:20)
[2021-05-14] MEDS ORDERED: DEXTROSE 10% 250 ML BAG IV ONE (09:30)
[2021-05-14] MEDS ORDERED: INSULIN REGULAR 100 UNIT/ML IV ONE (09:32)
[2021-05-14] MEDS ORDERED: VANCOMYCIN INJ 750 MG in SODIUM CHLORIDE 0.9% 250 ML IV ONE (09:35)
[2021-05-14] MEDS: SODIUM CHLORIDE 0.9% 1,000 ML IV SCH ×2 (09:45→16:27)
[2021-05-14] MEDS: POTASSIUM CHLORIDE 20 MEQ TABLET PO SCH (10:44)
[2021-05-14] MEDS: POTASSIUM BICARB EFFERVESCENT 25 MEQ TAB.EFF PO SCH (10:45)
[2021-05-14] MEDS ORDERED: PHENYLEPHRINE DRIP 40 MG/250 ML PREMIX IV ONE (11:09)
[2021-05-14] MEDS ORDERED: SUCCINYLCHOLINE 200 MG/10 ML VIAL ONE (11:16)
[2021-05-14] MEDS ORDERED: ETOMIDATE 20 MG/10 ML VIAL IV ONE ×2 (11:16→11:22)
[2021-05-14] MEDS: MAGNESIUM CHLORIDE 64 MG TABLET PO SCH (11:21)
[2021-05-14] MEDS ORDERED: SUCCINYLCHOLINE 200 MG/10 ML VIAL IV ONE (11:23)
[2021-05-14] MEDS: NOREPINEPHRINE 8 MG in SODIUM CHLORIDE 0.9% 242 ML IV PRN ×3 (11:50→16:50)
[2021-05-14] MEDS: PHENYLEPHRINE DRIP 40 MG/250 ML PREMIX IV PRN ×5 (11:55→18:06)
[2021-05-14] MEDS ORDERED: NOREPINEPHRINE 4 MG/4 ML VIAL IV ONE ×2 (11:58→16:47)
[2021-05-14] MEDS ORDERED: VANCOMYCIN INJ 1,000 MG in SODIUM CHLORIDE 0.9% 250 ML IV SCH (12:00)
[2021-05-14] MEDS ORDERED: SODIUM BICARBONATE 50 MEQ/50 ML SYRINGE IV ONE (12:03)
[2021-05-14] MEDS ORDERED: EPINEPHrine 1 MG/10 ML SYRINGE ONE (12:03)
[2021-05-14] MEDS ORDERED: MORPHINE 2 MG/1 ML SYRINGE ONE (12:15)
[2021-05-14] MEDS ORDERED: MIDAZOLAM 2 MG/2 ML VIAL IV ONE (12:18)
[2021-05-14] MEDS ORDERED: MORPHINE 2 MG/1 ML SYRINGE IV ONE (12:18)
[2021-05-14] MEDS ORDERED: MIDAZOLAM 2 MG/2 ML VIAL ONE (12:18)
[2021-05-14] MEDS ORDERED: MIDAZOLAM 100 MG in SODIUM CHLORIDE 0.9% 80 ML IV PRN (12:19)
[2021-05-14] MEDS: levETIRAcetam 500 MG TABLET PO SCH ×2 (13:12→21:43)
[2021-05-14] MEDS: SODIUM HYPOCHLORITE 0.25% IRRIG 473 ML BOTTLE TOP SCH (13:12)
[2021-05-14] MEDS: MULTIVITAMIN (CENTRUM) TABLET PO SCH (13:12)
[2021-05-14] MEDS: NICOTINE 21 MG/24 HR PATCH TRANSDERM SCH (13:13)
[2021-05-14] MEDS: PANTOPRAZOLE 40 MG TABLET PO SCH (13:14)
[2021-05-14] MEDS: methylPREDNISolone SOD SUC 40 MG/1 ML VIAL IV SCH ×2 (13:14→21:44)
[2021-05-14] MEDS: SERTRALINE 100 MG TABLET PO SCH (13:14)
[2021-05-14] MEDS: PIPERACILLIN/TAZOBACTAM 3,375 MG in SODIUM CHLORIDE 0.9% 100 ML IV SCH ×2 (13:15→17:44)
[2021-05-14] MEDS ORDERED: LACTATED RINGERS 1,000 ML IV ONE (13:23)
[2021-05-14 13:55] LABS: ABG Base Excess -22.3 MMOL/L (-2.5-2.5); ABG Oxygen Saturation 99.4 % (95-100)
[2021-05-14 13:59] LABS: Calcium 9.4 MG/DL (8.5-10.1); Osmolality,Calculated 283.7 MOS/KG (273-304)
[2021-05-14 13:59] LABS: ABG PH 7.092 (7.35-7.45)
[2021-05-14 14:03] LABS: Potassium 7.3 MMOL/L (3.5-5.1)
[2021-05-14] MEDS ORDERED: SODIUM BICARBONATE 50 MEQ/50 ML VIAL IV ONE (14:11)
[2021-05-14] MEDS: DEXTROSE 50% 25 GM/50 ML VIAL IV PRN ×3 (16:01→18:36)
[2021-05-14] MEDS ORDERED: PHENYLEPHRINE INJ 160 MG in SODIUM CHLORIDE 0.9% 234 ML IV PRN (18:55)
[2021-05-14] MEDS: NOREPINEPHRINE 16 MG in SODIUM CHLORIDE 0.9% 234 ML IV PRN ×2 (19:12→23:23)
[2021-05-14] MEDS: ENOXAPARIN 40 MG/0.4 ML SYRINGE SUBCUT SCH (21:43)
[2021-05-14] MEDS: QUEtiapine 25 MG TABLET PO SCH (21:43)
== END 2021-05-15 01:07 | disposition expired | DRG 264 ==
LOC: EDBD → EDUNIT# → N.ED 16:35 → N.EDINP 19:26 → SUATTDRO 19:26 → N.EDINP 05-03 00:53 → N.3E 05-03 01:25 → N.ICU 05-14 11:11
PROVIDERS: ADMIT Hospitalist; ATTEND Internal Medicine